=== PATIENT | female | born 1950 ===

== ENCOUNTER → 2017-04-26 | Outpatient (CLI) | payer MEDICARE ==
--- NOTE | 2017-04-26 14:38 | MM ---
Reason for exam: screening (asymptomatic). Last mammogram was performed 1 year ago. History: Patient is postmenopausal. Family history of breast cancer in sister at age 61 and breast cancer in paternal grandmother. Took hormonal contraceptives for 2 years. Took estrogen for 5 years. Took progesterone for 5 years. Physical Findings: A clinical breast exam by your physician is recommended on an annual basis and results should be correlated with mammographic findings. MG 3D Screening Mammo W/Cad Bilateral CC and MLO view(s) were taken. Prior study comparison: April 19, 2016, bilateral MG 3d screening mammo w/cad. April 10, 2015, bilateral MG screening mammo w CAD. There are scattered fibroglandular densities. There is no discrete abnormality. No significant changes when compared with prior studies. ASSESSMENT: Negative, BI-RAD 1 RECOMMENDATION: Routine screening mammogram of both breasts in 1 year.
== END | disposition home or self-care (01) ==
LOC: RADMAMWWP 09:51
PROVIDERS: ATTEND Obstetrics & Gynecology
DX: Z12.31 Encounter for screening mammogram for malignant neoplasm of breast (principal)
CPT/HCPCS: 77063; G0202

== ENCOUNTER → 2018-05-23 | Outpatient (CLI) | payer MEDICARE ==
--- NOTE | 2018-05-25 09:16 | MM ---
Reason for exam: screening (asymptomatic). Last mammogram was performed 1 year and 1 month ago. History: Patient is postmenopausal. Family history of breast cancer in sister at age 61 and breast cancer in paternal grandmother. Took hormonal contraceptives for 2 years. Took estrogen for 5 years. Took progesterone for 5 years. Physical Findings: A clinical breast exam by your physician is recommended on an annual basis and results should be correlated with mammographic findings. MG 3D Screening Mammo W/Cad Bilateral CC and MLO view(s) were taken. Prior study comparison: April 26, 2017, bilateral MG 3d screening mammo w/cad. April 19, 2016, bilateral MG 3d screening mammo w/cad. There are scattered fibroglandular densities. No significant changes when compared with prior studies. ASSESSMENT: Benign, BI-RAD 2 RECOMMENDATION: Routine screening mammogram of both breasts in 1 year.
--- NOTE | 2018-05-28 14:35 | BD ---
EXAMINATION TYPE: Axial Bone Density DATE OF EXAM: 05/23/2018 COMPARISON: NONE CLINICAL HISTORY: Height: 65 Weight: 210.6 FRAX RISK QUESTIONS: Alcohol (3 or more units per day): no Family History (Parent hip fracture): no Glucocorticoids (More than 3mos): no (Ex: prednisone, prednisolone, methylprednisolone, dexamethasone, and hydrocortisone). History of Fracture in Adulthood: rt arm/shoulder Secondary Osteoporosis: 1. Type 1 Diabetes: no 2. Hyperthyroidism: no 3. Menopause before 45: no 4. Malnutrition: no 5. Chronic liver disease: no Rheumatoid Arthritis: no Current Tobacco Use: no RISK FACTORS HISTORY OF: Family History of Osteoporosis: yes Active: yes Diet low in dairy products/other sources of calcium: yes Postmenopausal woman: around 48 Lost more than 2 inches in height since high school: no MEDICATIONS: losartan, Additional History: EXAM MEASUREMENTS: Bone mineral densitometry was performed using the [employer] System. Bone mineral density as measured about the Lumbar spine is: ----- L1-L4(G/cm2): 1.227 T Score Values are as follows: ----- L2: -0.4 ----- L3: 0.0 ----- L4: 1.4 ----- L1-L4: 0.4 Bone mineral density has: increased 2.1 % since study of: 03.20.2014 Bone mineral density about the R hip (g/cm2): 0.906 Bone mineral density about the L hip (g/cm2): 0.895 T Score values are as follows: -----R Neck: -0.9 -----L Neck: -1.0 -----R Total: 0.0 -----L Total: 0.1 Bone mineral density has: decreased-4.4 % since study of: 03.20.2014 IMPRESSION: No evidence for osteoporosis or osteopenia. NOTE: T-SCORE=SD OF THE YOUNG ADULT MEAN.
== END | disposition home or self-care (01) ==
LOC: RADMAMWWP 08:26
PROVIDERS: ATTEND Obstetrics & Gynecology
DX: Z12.31 Encounter for screening mammogram for malignant neoplasm of breast (principal); Z13.820 Encounter for screening for osteoporosis; N83.209 Unspecified ovarian cyst, unspecified side
CPT/HCPCS: 36415; 77063; 77067; 77080; 86304

== ENCOUNTER → 2019-02-05 | Outpatient (CLI) | payer MEDICARE ==
[2019-02-05 20:22] LABS: Cat Epith & Dander IgE 0.32 kU/L; Cockroach IgE 0.24 kU/L; Dermato. farinae IgE 0.14 kU/L; Dog Dander IgE <0.10 kU/L
[2019-02-05 20:25] LABS: Alternaria alternata IgE <0.10 kU/L; Birch IgE <0.10 kU/L; Codfish IgE <0.10 kU/L; Egg White IgE <0.10 kU/L; Elm IgE <0.10 kU/L; Maple (Box Elder) IgE <0.10 kU/L; Oak IgE <0.10 kU/L; Ragweed,Common IgE <0.10 kU/L; Red Top (Bentgrass) IgE 0.52 kU/L
[2019-02-05 20:26] LABS: Peanut IgE <0.10 kU/L; Soybean IgE <0.10 kU/L
[2019-02-05 20:27] LABS: Clam IgE <0.10 kU/L; Scallop IgE <0.10 kU/L; Shrimp IgE <0.10 kU/L; Walnut IgE (Food) <0.10 kU/L
== END | disposition home or self-care (01) ==
LOC: LABWHC1 14:14
PROVIDERS: ATTEND Internal Medicine Critical Care Medicine
DX: R05 Cough (principal)
CPT/HCPCS: 36415; 82785; 86003

== ENCOUNTER → 2019-02-19 | Outpatient (CLI) | payer MEDICARE ==
--- NOTE | 2019-02-19 11:34 | CT ---
EXAMINATION TYPE: CT sinus wo con DATE OF EXAM: 02/19/2019 COMPARISON: None HISTORY: Cough x [address] DLP: 635 mGycm. Automated Exposure Control for Dose Reduction was Utilized. TECHNIQUE: CT scan of the sinuses is performed without contrast, axial images are obtained, coronal r eformatted images are also reviewed. FINDINGS: The paranasal sinuses including the frontal, ethmoid, sphenoid, and maxillary sinuses bila terally are well-aerated without abnormal opacification. There is very mild mucosal thickening involv ing the inferior maxillary sinuses bilaterally. The ostiomeatal complex is patent bilaterally on the coronal images. Visualized portion of mastoid air cells show no abnormal opacification. The globes are intact bilate rally. IMPRESSION: 1. Mild chronic appearing maxillary sinusitis bilaterally..
== END | disposition home or self-care (01) ==
LOC: RADCTMAIN 11:09
PROVIDERS: ATTEND Internal Medicine Critical Care Medicine
DX: J32.0 Chronic maxillary sinusitis (principal)
CPT/HCPCS: 70486

== ENCOUNTER → 2019-06-18 | Outpatient (CLI) | payer MEDICARE ==
--- NOTE | 2019-06-19 08:11 | MM ---
Reason for exam: screening (asymptomatic). Last mammogram was performed 1 year and 1 month ago. History: Patient is postmenopausal. Family history of breast cancer in sister at age 61 and breast cancer in paternal grandmother. Took hormonal contraceptives for 2 years. Took estrogen for 5 years. Took progesterone for 5 years. Physical Findings: A clinical breast exam by your physician is recommended on an annual basis and results should be correlated with mammographic findings. MG 3D Screening Mammo W/Cad Bilateral CC and MLO view(s) were taken. Prior study comparison: May 23, 2018, bilateral MG 3d screening mammo w/cad. April 26, 2017, bilateral MG 3d screening mammo w/cad. There are scattered fibroglandular densities. There is chronic nodularity in the left axilla. There is no discrete abnormality. ASSESSMENT: Negative, BI-RAD 1 RECOMMENDATION: Routine screening mammogram of both breasts in 1 year.
== END | disposition home or self-care (01) ==
LOC: RADMAMWWP 10:59
PROVIDERS: ATTEND Obstetrics & Gynecology
DX: Z12.31 Encounter for screening mammogram for malignant neoplasm of breast (principal)
CPT/HCPCS: 77063; 77067

== ENCOUNTER 2019-11-09 12:28 | Inpatient (IN) | payer MEDICARE ==
[2019-11-09] MEDS ORDERED: SODIUM CHLORIDE 0.9% 500 ML 500 ML IV ONE (12:48)
[2019-11-09 13:02] LABS: Basophils # (A) 0.1 k/uL (0-0.2); Basophils % (A) 0 %; Eosinophils # (A) 0.2 k/uL (0-0.7); Eosinophils % (A) 2 %; HCT 45.6 % (34.0-46.0); HGB 14.8 gm/dL (11.4-16.0); Lymphocytes # (A) 1.7 k/uL (1.0-4.8); Lymphocytes % (A) 11 %; MCH 26.8 pg (25.0-35.0); MCHC 32.5 g/dL (31.0-37.0); MCV 82.5 fL (80.0-100.0); Mean Platelet Volume 9.3; Monocytes # (A) 0.6 k/uL (0-1.0); Monocytes % (A) 4 %; Neutrophils # (A) 12.5 k/uL (1.3-7.7); Neutrophils % (A) 82 %; Platelet Count 216 k/uL (150-450); RBC 5.53 m/uL (3.80-5.40); RDW 12.8 % (11.5-15.5); WBC 15.3 k/uL (3.8-10.6)
[2019-11-09 13:15] LABS: Albumin 4.5 g/dL (3.5-5.0); Calcium 10.2 mg/dL (8.4-10.2); Magnesium 2.3 mg/dL (1.6-2.3); Potassium 3.8 mmol/L (3.5-5.1); Total Bilirubin 0.9 mg/dL (0.2-1.3); Total Protein 7.7 g/dL (6.3-8.2)
[2019-11-09 13:21] LABS: INR 0.9 (<1.2); Partial Thromboplastin Time 23.9 sec (22.0-30.0); Prothrombin Time 9.7 sec (9.0-12.0)
--- NOTE | 2019-11-09 13:36 | ED ---
General Adult HPI - General Chief complaint: Shortness of Breath Stated complaint: ELEONORA Time Seen by Provider: 11/09/19 12:40 Source: family, EMS Mode of arrival: EMS Limitations: no limitations - History of Present Illness Initial comments: The patient is a 69-year-old female with past history of asthma and hypertension presents emergency room with reported shortness of breath and tachycardia. The patient reports that she's had progressive shortness of breath for several months. She saw Dr. Hanna last year in regards to this. She also saw her [facility] doctor and had a stress test done at the end of September. States that everything had been normal. She will occasionally get these episodes where she feels as if her heart is racing. States that as of the week and half ago she had a dental procedure done. After that she has continued to have shortness of breath and palpitations. Today she states it felt worse than normal therefore she called EMS for assistance. She denies a previous cardiac history. No coronary artery disease. Denies any chest pain. No ripping or tearing sensation to her back. Denies any unilateral numbness or weakness. Denies abdominal pain or changes in bowel habits. Denies any cough, fevers or chills or hemoptysis. No lower extremity edema. No calf pain or swelling. Denies history of DVT or PE. No active cancer. Does not take any hormones. No prolonged immobility or recent surgery other than the dental extraction. There are no alleviating, precipitating or modifying factors - Related Data Home Medications Medication Instructions Recorded Confirmed Acetaminophen-Codeine 300-30mg 1 tab PO Q4H PRN 11/09/19 11/09/19 [Tylenol w/codeine #3] Budesonide/Formoterol Fumarate 2 puff INHALATION RT-BID 11/09/19 11/09/19 [Symbicort 160-4.5 Mcg Inhaler] Candesartan/Hydrochlorothiazid 1 tab PO QAM 11/09/19 11/09/19 [Candesartan/Hydrochlorothiazid 16-12.5 mg] Zicam Allergy Tabs 1 tab PO DAILY PRN 11/09/19 11/09/19 Previous Rx's Medication Instructions Recorded Nitrofurantoin Monohyd/M-Cryst 100 mg PO Q12HR #6 cap 11/12/19 [Macrobid] Rivaroxaban [Xarelto Starter Pack] 0 mg PO DIRECTED 30 Days #1 pack 11/12/19 Allergies Allergy/AdvReac Type Severity Reaction Status Date / Time Penicillins Allergy Rash/Hives Verified 11/09/19 16:36 Sulfa (Sulfonamide Allergy Unknown Verified 11/09/19 16:36 Antibiotics) Review of Systems ROS Statement: Those systems with pertinent positive or pertinent negative responses have been documented in the HPI. ROS Other: All systems not noted in ROS Statement are negative. Past Medical History Past Medical History: Hypertension History of Any Multi-Drug Resistant Organisms: None Reported Past Surgical History: No Surgical Hx Reported Past Psychological History: No Psychological Hx Reported Smoking Status: Never smoker Past Alcohol Use History: Occasional Past Drug Use History: None Reported - Past Family History Father Family Medical History: Chest Pain / Angina, Coronary Artery Disease (CAD) General Exam Limitations: no limitations General appearance: alert, in no apparent distress Head exam: Present: atraumatic, normocephalic, normal inspection Eye exam: Present: normal appearance, PERRL, EOMI. Absent: scleral icterus, conjunctival injection, periorbital swelling ENT exam: Present: normal exam, mucous membranes moist Neck exam: Present: normal inspection. Absent: tenderness, meningismus, lymphadenopathy Respiratory exam: Present: normal lung sounds bilaterally. Absent: respiratory distress, wheezes, rales, rhonchi, stridor Cardiovascular Exam: Present: normal rhythm, tachycardia, normal heart sounds. Absent: systolic murmur, diastolic murmur, rubs, gallop, clicks GI/Abdominal exam: Present: soft, normal bowel sounds. Absent: distended, tenderness, guarding, rebound, rigid Extremities exam: Present: normal inspection, full ROM, normal capillary refill. Absent: tenderness, pedal edema, joint swelling, calf tenderness Back exam: Present: normal inspection Neurological exam: Present: alert, oriented X3, CN II-XII intact Psychiatric exam: Present: normal affect, normal mood Skin exam: Present: warm, dry, intact, normal color. Absent: rash Course Vital Signs 11/09/19 11/09/19 11/09/19 12:41 13:00 13:30 Temperature 97.9 F Pulse Rate 135 H 122 H 118 H Respiratory 22 20 20 Rate Blood Pressure 139/102 139/102 132/83 O2 Sat by Pulse 95 97 97 Oximetry 02/05/2111/09/19 11/09/19 14:00 14:30 15:00 Temperature Pulse Rate 117 H 120 H Respiratory 20 20 Rate Blood Pressure 122/84 141/94 141/94 O2 Sat by Pulse 97 96 Oximetry 11/09/19 11/09/19 15:30 16:00 Temperature Pulse Rate 121 H 116 H Respiratory 18 18 Rate Blood Pressure 131/88 150/86 O2 Sat by Pulse 97 98 Oximetry EKG Findings - EKG Comments: EKG Findings:: EKG demonstrates what appears to be a sinus tach with a ventricular rate of 133. QRS 90. QTC of 592. Context is her narrow. There do appear to be some P waves versus flutter waves. No acute ST segment elevations. Q wave in lead 3. Medical Decision Making - Medical Decision Making Upon arrival the patient was placed into room 5. A thorough history and physical exam was performed. The patient does have an EKG performed which ap pears to be a sinus tach. I did conduct laboratory studies. WBC 15.3. D-dimer elevated at 7. Troponin 0.066. Urinalysis shows small blood, large leukocyte esterase, 26 red blood cells, greater than 182 white blood cells, many bacteria. Blood cultures obtained and the patient was given a dose of Rocephin. His elevated d-dimer at over for a CT PE study. Chest x-ray originally performed demonstrated no active cardio pulmonary disease. CT of the patient's chest demonstrates multiple bilateral pulmonary emboli in the lower lobes. Also embolism in the right upper lobe. I discussed the results of the patient. She does not have any contra indications to to heparinization therefore did initiate the patient on heparin. I admitted the patient's hospital. Discussed the case with Dr. Monroe who accepted admission. I'll place Dr. Salgado on consult. Patient remained in stable condition and was transferred to the floor - Lab Data Result diagrams: 11/12/19 06:13 11/10/19 06:04 Lab Results 11/09/19 11/09/19 11/09/19 Range/Units 12:55 12:55 12:55 WBC 15.3 H (3.8-10.6) k/uL RBC 5.53 H (3.80-5.40) m/uL Hgb 14.8 (11.4-16.0) gm/dL Hct 45.6 (34.0-46.0) % MCV 82.5 (80.0-100.0) fL MCH 26.8 (25.0-35.0) pg MCHC 32.5 (31.0-37.0) g/dL RDW 12.8 (11.5-15.5) % Plt Count 216 (150-450) k/uL Neutrophils % 82 % Lymphocytes % 11 % Monocytes % 4 % Eosinophils % 2 % Basophils % 0 % Neutrophils # 12.5 H (1.3-7.7) k/uL Lymphocytes # 1.7 (1.0-4.8) k/uL Monocytes # 0.6 (0-1.0) k/uL Eosinophils # 0.2 (0-0.7) k/uL Basophils # 0.1 (0-0.2) k/uL PT 9.7 (9.0-12.0) sec INR 0.9 (<1.2) APTT 23.9 (22.0-30.0) sec D-Dimer 7.09 H (<0.60) mg/L FEU Sodium 138 (137-145) mmol/L Potassium 3.8 (3.5-5.1) mmol/L Chloride 104 (98-107) mmol/L Carbon Dioxide 21 L (22-30) mmol/L Anion Gap 13 mmol/L BUN 17 (7-17) mg/dL Creatinine 1.13 H (0.52-1.04) mg/dL Est GFR (CKD-EPI)AfAm 57 (>60 ml/min/1.73 sqM) Est GFR (CKD-EPI)NonAf 49 (>60 ml/min/1.73 sqM) Glucose 123 H (74-99) mg/dL Calcium 10.2 (8.4-10.2) mg/dL Magnesium 2.3 (1.6-2.3) mg/dL Total Bilirubin 0.9 (0.2-1.3) mg/dL AST 35 (14-36) U/L ALT 26 (4-34) U/L Alkaline Phosphatase 92 (38-126) U/L Troponin I (0.000-0.034) ng/mL Total Protein 7.7 (6.3-8.2) g/dL Albumin 4.5 (3.5-5.0) g/dL TSH 2.050 (0.465-4.680) mIU/L Urine Color Urine Appearance (Clear) Urine pH (5.0-8.0) Ur Specific [place] (1.001-1.035) Urine Protein (Negative) Urine Glucose (UA) (Negative) Urine Ketones (Negative) Urine Blood (Negative) Urine Nitrite (Negative) Urine Bilirubin (Negative) Urine Urobilinogen (<2.0) mg/dL Ur Leukocyte Esterase (Negative) Urine RBC (0-5) /hpf Urine WBC (0-5) /hpf Urine WBC Clumps (None) /hpf Ur Squamous Epith Cells (0-4) /hpf Urine Bacteria (None) /hpf Urine Mucus (None) /hpf 11/09/19 11/09/19 Range/Units 12:55 13:16 WBC (3.8-10.6) k/uL RBC (3.80-5.40) m/uL Hgb (11.4-16.0) gm/dL Hct (34.0-46.0) % MCV (80.0-100.0) fL MCH (25.0-35.0) pg MCHC (31.0-37.0) g/dL RDW (11.5-15.5) % Plt Count (150-450) k/uL Neutrophils % % Lymphocytes % % Monocytes % % Eosinophils % % Basophils % % Neutrophils # (1.3-7.7) k/uL Lymphocytes # (1.0-4.8) k/uL Monocytes # (0-1.0) k/uL Eosinophils # (0-0.7) k/uL Basophils # (0-0.2) k/uL PT (9.0-12.0) sec INR (<1.2) APTT (22.0-30.0) sec D-Dimer (<0.60) mg/L FEU Sodium (137-145) mmol/L Potassium (3.5-5.1) mmol/L Chloride (98-107) mmol/L Carbon Dioxide (22-30) mmol/L Anion Gap mmol/L BUN (7-17) mg/dL Creatinine (0.52-1.04) mg/dL Est GFR (CKD-EPI)AfAm (>60 ml/min/1.73 sqM) Est GFR (CKD-EPI)NonAf (>60 ml/min/1.73 sqM) Glucose (74-99) mg/dL Calcium (8.4-10.2) mg/dL Magnesium (1.6-2.3) mg/dL Total Bilirubin (0.2-1.3) mg/dL AST (14-36) U/L ALT (4-34) U/L Alkaline Phosphatase (38-126) U/L Troponin I 0.066 H* (0.000-0.034) ng/mL Total Protein (6.3-8.2) g/dL Albumin (3.5-5.0) g/dL TSH (0.465-4.680) mIU/L Urine Color Yellow Urine Appearance Cloudy H (Clear) Urine pH 6.5 (5.0-8.0) Ur Specific [place] 1.010 (1.001-1.035) Urine Protein 1+ H (Negative) Urine Glucose (UA) Negative (Negative) Urine Ketones Negative (Negative) Urine Blood Small H (Negative) Urine Nitrite Negative (Negative) Urine Bilirubin Negative (Negative) Urine Urobilinogen <2.0 (<2.0) mg/dL Ur Leukocyte Esterase Large H (Negative) Urine RBC 26 H (0-5) /hpf Urine WBC >182 H (0-5) /hpf Urine WBC Clumps Many H (None) /hpf Ur Squamous Epith Cells 1 (0-4) /hpf Urine Bacteria Few H (None) /hpf Urine Mucus Rare H (None) /hpf Critical Care Time Critical Care Time: 35mins. pt initiated on heparin gtt Disposition Clinical Impression: Tachycardia, Shortness of breath, Pulmonary embolism, NSTEMI (non-ST elevation myocardial infarction) Disposition: ADMITTED IP TO THIS HOSP Condition: Stable Is patient prescribed a controlled substance at d/c from ED?: No Decision to Admit Reason: Admit from EC Decision Date: 11/09/19 Decision Time: 16:00
[2019-11-09 13:38] LABS: Appearance,Urine Cloudy (Clear); Bacteria,Urine Few /hpf; Bilirubin,Urine Negative (Negative); Blood,Urine Small (Negative); Color,Urine Yellow; Glucose,Urine (UA) Negative (Negative); Ketones,Urine Negative (Negative); Leukocyte Esterase,Urine Large (Negative); Mucus,Urine Rare /hpf; Nitrite,Urine Negative (Negative); PH, Urine 6.5 (5.0-8.0); Protein,Urine 1+ (Negative); RBC,Urine 26 /hpf (0-5); Squamous Epithelial Cell,Urine 1 /hpf (0-4); Urobilinogen,Urine <2.0 mg/dL (<2.0); WBC,Urine >182 /hpf (0-5)
--- NOTE | 2019-11-09 13:39 | XR ---
EXAMINATION TYPE: XR chest 2V DATE OF EXAM: 11/09/2019 HISTORY: dysrhythmia. REFERENCE: NONE. FINDINGS: The lungs are clear. Pleural spaces are clear. Heart size is within normal limits. There is some unfolding of the thoracic aorta. IMPRESSION: NO ACTIVE INTRATHORACIC DISEASE.
[2019-11-09 13:40] LABS: D-Dimer 7.09 mg/L FEU (<0.60)
[2019-11-09] MEDS ORDERED: cefTRIAXone IN SWFI 1,000 MG/10 ML SYRINGE IVP STA (13:59)
--- NOTE | 2019-11-09 14:53 | CT ---
EXAMINATION TYPE: CT chest angio for PE DATE OF EXAM: 11/09/2019 COMPARISON: HISTORY: Shortness of breath. CT DLP: 460.3 mGycm Automated exposure control for dose reduction was used. CONTRAST: Performed with IV Contrast, patient injected with 80 mL of Isovue 370. CT scan of the chest pulmonary embolism. There are 3-D post processed images. FINDINGS: The mediastinum is normal. There is no mediastinal adenopathy. Thoracic aorta is intact. There is no aneurysm or dissection. Heart size is normal. There is no pericardial effusion. There are multiple cy sts in the liver in the left and right lobe. These measure up to 4 cm. The bile ducts are not dilated . Spleen is intact. There is no pleural effusion. The lungs are clear of consolidation. There is no evidence of a pulmona ry mass. There are numerous filling defects in the lower lobe pulmonary arteries bilaterally. There is also em bolism in the right upper lobe pulmonary artery. The thoracic spine is intact. Heart size is fairly normal. There is no enlargement of the right ventricle. There is mild subsegment al atelectasis at the lung bases. IMPRESSION: Multiple bilateral pulmonary emboli. Exam was discussed with Sonali Campuzano at 2:00 PM.
[2019-11-09] MEDS ORDERED: HEPARIN SODIUM,PORCINE 10,000 UNIT/ML 1 ML VIAL IV ONE (15:15)
[2019-11-09] MEDS ORDERED: HEPARIN SODIUM,PORCINE 5,000 UNIT/ML 1 ML VIAL IV PRN (15:15)
[2019-11-09] MEDS: HEPARIN SOD,PORK IN 0.45% NACL 25,000 UNIT in 0.45% NACL 1 250ML.BAG IV SCH (15:48)
[2019-11-09] MEDS ORDERED: NALOXONE 0.4 MG/ML 1 ML VIAL IV PRN (16:00)
[2019-11-09] MEDS ORDERED: ASPIRIN-ACET-CAFF 250-250-65MG 1 EACH TAB PO PRN (18:05)
[2019-11-09] MEDS ORDERED: Acetaminophen-Codeine 300-30mg TAB PO PRN (18:05)
--- NOTE | 2019-11-09 18:42 | P.HPIM ---
History of Present Illness H&P Date: 11/09/19 Chief Complaint: Difficulty in breathing off and on for one week prior to pr esentation. This 69-year-old lady with us medical history significant for hypertension, asthma and possible asthma which was recently diagnosed by Dr. Hanna as started on inhalers, who presented to the emergency department with her daughter with the above complaints. Patient stated that she had tooth abscess on for which she's been sick off-and-on for couple weeks and receive antibiotics after tooth extraction. Patient started developing dyspnea on exertion that lasted for short period of time and resolving back to her baseline so she did not seek medical advice. Patient reported that she continues to have these type of symptoms off and on for past 7-8 days until on the day of presentation which is today her shortness of breath did not improved and patient's daughter brought the patient to the emergency room for evaluation. Patient stated that this morning she also had some heaviness in the chest that she had not had in the past. Patient denies palpitation, diaphoresis, dizziness, lightheadedness, nausea, vomiting, diarrhea and denies rest of the review system. Patient did complain of having chronic headaches for which she takes Excedrin with help. Review of Systems All systems: negative Past Medical History Past Medical History: Asthma, Hypertension History of Any Multi-Drug Resistant Organisms: None Reported Past Surgical History: No Surgical Hx Reported Past Anesthesia/Blood Transfusion Reactions: No Reported Reaction Past Psychological History: No Psychological Hx Reported Smoking Status: Former smoker Past Alcohol Use History: Occasional Past Drug Use History: None Reported - Past Family History Father Family Medical History: Chest Pain / Angina, Coronary Artery Disease (CAD) Medications and Allergies Home Medications Medication Instructions Recorded Confirmed Type Acetaminophen-Codeine 300-30mg 1 tab PO Q4H PRN 11/09/19 11/09/19 History [Tylenol w/codeine #3] [id number]-Safm 036-340-15Mb 1 tab PO BID PRN 11/09/19 11/09/19 History [Excedrin] Budesonide/Formoterol Fumarate 2 puff INHALATION RT-BID 11/09/19 11/09/19 History [Symbicort 160-4.5 Mcg Inhaler] Candesartan/Hydrochlorothiazid 1 tab PO QAM 11/09/19 11/09/19 History [Candesartan/Hydrochlorothiazid 16-12.5 mg] Zicam Allergy Tabs 1 tab PO DAILY PRN 11/09/19 11/09/19 History Allergies Allergy/AdvReac Type Severity Reaction Status Date / Time Penicillins Allergy Rash/Hives Verified 11/09/19 16:36 Sulfa (Sulfonamide Allergy Unknown Verified 11/09/19 16:36 Antibiotics) Physical Exam Vitals: Vital Signs Temp Pulse Pulse Resp BP BP Pulse Ox 11/09/19 16:55 98.2 F 124 H 19 133/86 95 11/09/19 16:00 116 H 18 150/86 98 11/09/19 15:30 121 H 18 131/88 97 11/09/19 15:00 120 H 20 141/94 96 11/09/19 14:30 141/94 11/09/19 14:00 117 H 20 122/84 97 11/09/19 13:30 118 H 20 132/83 97 11/09/19 13:00 122 H 20 139/102 97 11/09/19 12:41 97.9 F 135 H 22 139/102 95 Intake and Output 11/09/19 11/09/19 11/09/19 06:59 14:59 22:59 Other: Weight 96.162 kg 96.162 kg - Constitutional General appearance: cooperative, mild distress - EENT Eyes: EOMI, normal appearance ENT: hearing grossly normal, NA/AT - Neck Neck: no lymphadenopathy, normal ROM, no stridor - Respiratory Respiratory: bilateral: CTA, wheezing (Few scattered bilaterally), negative: diminished, dullness, rales, rhonchi - Cardiovascular Rhythm: irregularly irregular Heart sounds: abnormal: S1 (Variable), S2 (Variable) Abnormal Heart Sounds: no systolic murmur, no diastolic murmur, no S3 Gallop, no S4 Gallop - Gastrointestinal Mild supra-pubic soreness without rebound tenderness, no CVA tenderness. General gastrointestinal: no distended, normal bowel sounds, no rigid, soft, no tenderness - Neurologic Neurologic: CNII-XII intact (No focal neuro deficits noted.) - Psychiatric Psychiatric: A&O x's 3, appropriate affect, intact judgment & insight Results CBC & Chem 7: 11/09/19 12:55 11/09/19 12:55 Labs: Abnormal Lab Results - Last 24 Hours (Table) 11/09/19 11/09/19 11/09/19 Range/Units 12:55 12:55 12:55 WBC 15.3 H (3.8-10.6) k/uL RBC 5.53 H (3.80-5.40) m/uL Neutrophils # 12.5 H (1.3-7.7) k/uL D-Dimer 7.09 H (<0.60) mg/L FEU Carbon Dioxide 21 L (22-30) mmol/L Creatinine 1.13 H (0.52-1.04) mg/dL Glucose 123 H (74-99) mg/dL Troponin I (0.000-0.034) ng/mL Urine Appearance (Clear) Urine Protein (Negative) Urine Blood (Negative) Ur Leukocyte Esterase (Negative) Urine RBC (0-5) /hpf Urine WBC (0-5) /hpf Urine WBC Clumps (None) /hpf Urine Bacteria (None) /hpf Urine Mucus (None) /hpf 11/09/19 11/09/19 Range/Units 12:55 13:16 WBC (3.8-10.6) k/uL RBC (3.80-5.40) m/uL Neutrophils # (1.3-7.7) k/uL D-Dimer (<0.60) mg/L FEU Carbon Dioxide (22-30) mmol/L Creatinine (0.52-1.04) mg/dL Glucose (74-99) mg/dL Troponin I 0.066 H* (0.000-0.034) ng/mL Urine Appearance Cloudy H (Clear) Urine Protein 1+ H (Negative) Urine Blood Small H (Negative) Ur Leukocyte Esterase Large H (Negative) Urine RBC 26 H (0-5) /hpf Urine WBC >182 H (0-5) /hpf Urine WBC Clumps Many H (None) /hpf Urine Bacteria Few H (None) /hpf Urine Mucus Rare H (None) /hpf Chest x-ray: report reviewed CT scan - chest: report reviewed Thrombosis Risk Factor Assmnt - DVT/VTE Prophylaxis DVT/VTE Prophylaxis: Contraindicated - See note (Pt. is on full dose anticoagulation with I/V Heparin for PEs.) - Choose All That Apply Any of the Below Risk Factors Present?: No Each Risk Factor Represents 2 Points: Age 61-74 years Each Risk Factor Represents 3 Points: History of DVT/PE Thrombosis Risk Factor Assessment Total Risk Factor Score: 5 Thrombosis Risk Factor Assessment Level: High Risk Assessment and Plan Plan: Bilateral Multiple Pulmonary Embolism - Admitted to cardiac unit, IV heparinization with PTT protocol, we will discuss with patient and patient's daughter regarding oral anticoagulation choices. Patient is a good candidate for ELIQUIS but we will defer this decision depending upon the patient's own choices. I will order bilateral lower extremity venous Doppler to look for deep venous thrombosis leading to patient's multiple pulmonary embolism shower. Patient will also be placed on his atenolol oxygen to optimize oxygenation. NSTEMI possible type-II - Patient did had vague chest heaviness earlier today but there is no prior history of coronary artery disease or myocardial infarction. Current and a STEMI could be type-II from bilateral multiple pulmonary embolisms or it could be an independent event. I will consult cardiology and await their recommendation will continue IV heparin and I will add aspirin to the regime. Patient is already on losartan we will continue that. Atrial Fib w/RVR - Not sure whether this is new onset atrial fibrillation from multiple pulmonary embolisms or is a chronic atrial fibrillation, no prior EKG to compare. Patient was not aware of irregular heart rate before. Cardiology is already on case and we'll await further recommendation. At this point in time patient blood pressure is stable and heart rate is not out of control as currently she is running between 110-120 bpm and we will monitor her on telemetry unit. Patient's heart rate gets out of control than beta bouchra would be the choice of medication to control heart rate in face of an NSTEMI. UTI - Uncomplicated - Patient was given first dose of ceftriaxone in the emergency department I will continue that on a daily basis for now, urine and blood cultures were ordered from the ED and we will follow the reports. There is no clinical evidence of acute pyelonephritis at this point. MARIA on CKD - Patient has stage III kidney disease most likely acute on chronic kidney injury from all of the above. Patient will be continued on IV hydration and I will monitor patient renal function and electrolytes in the morning. HTN - Blood pressure is well controlled I will continue home medications. Asthma/COPD newly diagnosed by Dr. Hanna - Patient was recently started on Symbicort we will continue for now and Dr. Hanna consultfrom the emergency department per patient's request we will await their recommendations. CODE STATUSfull code DVT prophylaxispatient already on full dose IV heparin for multiple pulmonary embolisms. Estimated length of staymore than 2 days. Discharge dispositionmost likely home and if needed with home care. Time with Patient: Greater than 30 (Total time spent was 45 minutes.)
--- NOTE | 2019-11-09 19:01 | US ---
EXAMINATION TYPE: US venous doppler duplex LE DATE OF EXAM: 11/09/2019 6:10 PM COMPARISON: NONE CLINICAL HISTORY: Bilateral multiple Pulmonary Embolisms. PE's, pt states no complaints with bilatera l legs SIDE PERFORMED: Bilateral TECHNIQUE: The lower extremity deep venous system is examined utilizing real time linear array sonog ck with graded compression, doppler sonography and color-flow sonography. VESSELS IMAGED: External Iliac Vein (EIV) Common Femoral Vein Deep Femoral Vein Greater Saphenous Vein * Femoral Vein Popliteal Vein Small Saphenous Vein * Proximal Calf Veins (* superficial vessels) Right Leg: Negative for DVT Left Leg: Negative for DVT IMPRESSION: Negative exam. No evidence of deep vein thrombosis in both legs.
[2019-11-09] MEDS: ASPIRIN 81 MG PO SCH (19:35)
[2019-11-09] MEDS: SYMBICORT 160-4.5 MCG INHALER INHALATION SCH ×2 (20:40→21:00)
[2019-11-10] MEDS: HEPARIN SOD,PORK IN 0.45% NACL 25,000 UNIT in 0.45% NACL 1 250ML.BAG IV SCH ×2 (05:39→22:12)
[2019-11-10 06:50] LABS: Basophils # (A) 0.1 k/uL (0-0.2); Basophils % (A) 1 %; Eosinophils # (A) 0.2 k/uL (0-0.7); Eosinophils % (A) 1 %; HCT 42.8 % (34.0-46.0); HGB 13.6 gm/dL (11.4-16.0); Lymphocytes % (A) 22 %; MCHC 31.8 g/dL (31.0-37.0); MCV 81.8 fL (80.0-100.0); Mean Platelet Volume 9.5; Monocytes # (A) 0.7 k/uL (0-1.0); Monocytes % (A) 5 %; Neutrophils # (A) 9.6 k/uL (1.3-7.7); Neutrophils % (A) 70 %; Platelet Count 208 k/uL (150-450); RBC 5.23 m/uL (3.80-5.40); RDW 13.1 % (11.5-15.5); WBC 13.8 k/uL (3.8-10.6)
[2019-11-10 07:38] LABS: Calcium 9.4 mg/dL (8.4-10.2); Magnesium 2.3 mg/dL (1.6-2.3); Potassium 4.2 mmol/L (3.5-5.1)
[2019-11-10] MEDS: SYMBICORT 160-4.5 MCG INHALER INHALATION SCH ×2 (09:00→19:43)
[2019-11-10] MEDS: LOSARTAN 50 MG TAB PO SCH (09:17)
[2019-11-10] MEDS: ASPIRIN 81 MG PO SCH (09:17)
--- NOTE | 2019-11-10 11:47 | P.PN ---
Subjective Progress Note Date: 11/10/19 This 69-year-old lady with us medical history significant for hypertension, asthma and possible asthma which was recently diagnosed by Dr. Hanna as started on inhalers, who presented to the emergency department with her daughter with the above complaints. Patient stated that she had tooth abscess on for which she's been sick off-and-on for couple weeks and receive antibiotics after tooth extraction. Patient started developing dyspnea on exertion that lasted for short period of time and resolving back to her baseline so she did not seek medical advice. Patient reported that she continues to have these type of symptoms off and on for past 7-8 days until on the day of presentation which is today her shortness of breath did not improved and patient's daughter brought the patient to the emergency room for evaluation. Patient stated that this morning she also had some heaviness in the chest that she had not had in the past. Patient's bilateral lower extremity Dopplers was done which was negative for deep vein thrombosis. Patient denies palpitation, diaphoresis, dizziness, lightheadedness, nausea, vomiting, diarrhea and denies rest of the review system. Patient did complain of having chronic headaches for which she takes Excedrin with help. Objective - Vital Signs Vital signs: Vital Signs Temp 97.9 F 11/10/19 08:00 Pulse 101 H 11/10/19 08:00 Resp 19 11/10/19 08:00 BP 116/75 11/10/19 08:00 Pulse Ox 94 L 11/10/19 08:00 Intake & Output 11/09/19 11/10/19 11/10/19 18:59 06:59 18:59 Intake Total 445.88 36.3 Balance 445.88 36.3 Weight 96.162 kg 96.6 kg Intake: Intake, IV Titration 205.88 36.3 Amount Heparin Sod,Pork in 0.45% 205.88 36.3 NaCl 25,000 unit In 0.45 % NaCl 1 250ml.bag @ 18 UNITS/KG/HR 17.309 mls/hr IV .[id number] [facility] Rx#: [id number] Oral 240 Other: # Voids 2 - Constitutional General appearance: Present: cooperative, no acute distress - EENT Eyes: Present: EOMI, normal appearance ENT: Present: hearing grossly normal, NA/AT - Neck Neck: Present: normal ROM. Absent: lymphadenopathy, rigidity - Respiratory Respiratory: bilateral: CTA, negative: diminished, dullness, rales, rhonchi, wheezing - Cardiovascular Rhythm: regular Heart sounds: normal: S1, S2 Abnormal Heart Sounds: Absent: systolic murmur, diastolic murmur, S3 Gallop, S4 Gallop - Gastrointestinal General gastrointestinal: Present: normal bowel sounds, soft. Absent: distended, rigid, tenderness - Neurologic Neurologic: Present: CNII-XII intact. Absent: focal deficits - Psychiatric Psychiatric: Present: A&O x's 3, appropriate affect, intact judgment & insight - Allied health notes Allied health notes reviewed: nursing - Labs CBC & Chem 7: 11/10/19 06:04 11/10/19 06:04 Labs: Abnormal Lab Results - Last 24 Hours (Table) 11/09/19 11/09/19 11/09/19 Range/Units 12:55 12:55 12:55 WBC 15.3 H (3.8-10.6) k/uL RBC 5.53 H (3.80-5.40) m/uL Neutrophils # 12.5 H (1.3-7.7) k/uL APTT (22.0-30.0) sec D-Dimer 7.09 H (<0.60) mg/L FEU Carbon Dioxide 21 L (22-30) mmol/L Creatinine 1.13 H (0.52-1.04) mg/dL Glucose 123 H (74-99) mg/dL Troponin I (0.000-0.034) ng/mL Urine Appearance (Clear) Urine Protein (Negative) Urine Blood (Negative) Ur Leukocyte Esterase (Negative) Urine RBC (0-5) /hpf Urine WBC (0-5) /hpf Urine WBC Clumps (None) /hpf Urine Bacteria (None) /hpf Urine Mucus (None) /hpf 11/09/19 11/09/19 11/09/19 Range/Units 12:55 13:16 21:25 WBC (3.8-10.6) k/uL RBC (3.80-5.40) m/uL Neutrophils # (1.3-7.7) k/uL APTT >200.0 H* (22.0-30.0) sec D-Dimer (<0.60) mg/L FEU Carbon Dioxide (22-30) mmol/L Creatinine (0.52-1.04) mg/dL Glucose (74-99) mg/dL Troponin I 0.066 H* (0.000-0.034) ng/mL Urine Appearance Cloudy H (Clear) Urine Protein 1+ H (Negative) Urine Blood Small H (Negative) Ur Leukocyte Esterase Large H (Negative) Urine RBC 26 H (0-5) /hpf Urine WBC >182 H (0-5) /hpf Urine WBC Clumps Many H (None) /hpf Urine Bacteria Few H (None) /hpf Urine Mucus Rare H (None) /hpf 11/10/19 11/10/19 11/10/19 Range/Units 06:04 06:04 06:04 WBC 13.8 H (3.8-10.6) k/uL RBC (3.80-5.40) m/uL Neutrophils # 9.6 H (1.3-7.7) k/uL APTT 124.8 H* (22.0-30.0) sec D-Dimer (<0.60) mg/L FEU Carbon Dioxide (22-30) mmol/L Creatinine (0.52-1.04) mg/dL Glucose 102 H (74-99) mg/dL Troponin I (0.000-0.034) ng/mL Urine Appearance (Clear) Urine Protein (Negative) Urine Blood (Negative) Ur Leukocyte Esterase (Negative) Urine RBC (0-5) /hpf Urine WBC (0-5) /hpf Urine WBC Clumps (None) /hpf Urine Bacteria (None) /hpf Urine Mucus (None) /hpf - Imaging and Cardiology Venous US: report reviewed Assessment and Plan Plan: Bilateral Multiple Pulmonary Embolism - Admitted to cardiac unit, IV heparinization with PTT protocol, I discussed with patient and patient's daughter regarding oral anticoagulation choices, patient refused option of warfarin but she wanted to discuss other options with her pig machine operator helper and machine i cutter and then come up with the her choice of anticoagulation therapy by tomorrow. Patient was given education about anticoagulation and pros and cons related to it and all questions were answered. Patient is a good candidate for ELIQUIS but we will defer this decision depending upon the patient's own choices. Bilateral lower extremity venous Doppler NEGATIVE for deep venous thrombosis. Patient will also be placed on NCO2 to optimize oxygenation. NSTEMI possible type-II - Patient did had vague chest heaviness earlier today but there is no prior history of coronary artery disease or myocardial infarction. Current and a STEMI could be type-II from bilateral multiple pulmonary embolisms or it could be an independent event. Cardiology has been consulted and await their recommendations, will continue IV heparin and I will add aspirin to the regime. Patient is already on losartan we will continue that. Atrial Fib w/RVR - Not sure whether this is new onset atrial fibrillation from multiple pulmonary embolisms or is a chronic atrial fibrillation, no prior EKG to compare. Patient was not aware of irregular heart rate before her heart rate is now better controlled. Cardiology is already on case and we'll await further recommendation. If patient's heart rate gets out of control than beta bouchra would be the choice of medication to control heart rate in face of an NSTEMI. UTI - Uncomplicated - Patient was given first dose of ceftriaxone in the emergency department I will continue that on a daily basis for now, urine and blood cultures were ordered from the ED and we will follow the reports. There is no clinical evidence of acute pyelonephritis at this point. MARIA on CKD - Patient has stage III kidney disease most likely acute on chronic kidney injury from all of the above. Patient will be continued on IV hydration and I will monitor patient renal function and electrolytes in the morning. HTN - Blood pressure is well controlled I will continue home medications. Asthma/COPD newly diagnosed by Dr. Hanna - Patient was recently started on Symbicort we will continue for now and Dr. Hanna consultfrom the emergency department per patient's request we will await their recommendations. CODE STATUSfull code DVT prophylaxispatient already on full dose IV heparin for multiple pulmonary embolisms. Estimated length of staymore than 2 days. Discharge dispositionmost likely home and if needed with home care. Time with Patient: Less than 30
--- NOTE | 2019-11-10 12:12 | P.CNPUL ---
History of Present Illness Consult date: 11/10/19 Requesting physician: Sarbjit Juares Reason for consult: abnormal CXR/CT (Multiple bilateral pulmonary emboli) Chief complaint: Dyspnea on exertion History of present illness: This is a very pleasant 69-year-old female patient who follows with Dr. Parkinson as her primary care provider. She has history of hypertension. She had also been seen by Dr. Richardson in the past with some mild intermittent chronic bronchial asthma and is on Symbicort in the outpatient setting. She is a lifelong nonsmoker. She had been having issues with shortness of breath on exertion for 2 months now. In September she had a stress test that was reported as normal. She also had a tooth abscess 2 weeks ago with subsequent extraction. Otherwise she had been doing fairly well. The exertion no shortness of breath improved with rest yesterday however she was quite dyspneic with minimal exertion and tachycardic and presented the emergency room for the same. CT angiogram revealed multiple bilateral pulmonary emboli. No right ventricular heart strain or enlargement. Dopplers of the lower extremity were negative. The patient denies any sedentary lifestyle, no long car rides no plane rides no recent travel, no prior history of blood clots. No family history of blood clots, no cancer, no hemoptysis. She was initiated on a heparin drip. She is seen today in consultation on the selective care unit. She is currently awake and alert in no acute distress. Maintaining O2 saturation in the 90s on 2 L/m per nasal cannula. She's afebrile. Hemodynamically stable. White count 13.8. Hemoglobin 13.6. Sodium 137. Potassium 4.2. Creatinine 0.96. Review of Systems REVIEW OF SYSTEMS: CONSTITUTIONAL: Denies any recent significant weight loss or weight gain. EYES: Denies change in vision. EARS, NOSE, MOUTH, THROAT: Denies headaches, denies sore throat. CARDIOVASCULAR: Denies chest pain, positive for palpitations no syncopal episodes. RESPIRATORY: Positive for shortness of breath, no cough, congestion or hemoptysis. GASTROINTESTINAL: Denies change in appetite, denies abdominal pain GENITOURINARY: Denies hematuria, denies infections. MUSKULOSKELETAL: Denies pain, denies swelling. INTEGUMENTARY: Denies rash, denies eczema. NEUROLOGICAL: Denies recent memory loss, no recent seizure activity. PSYCHIATRIC: Denies anxiety, denies depression. HEMATOLOGIC/LYMPHATIC: Denies anemia, denies enlarged lymph nodes. Past Medical History Past Medical History: Hypertension History of Any Multi-Drug Resistant Organisms: None Reported Past Surgical History: No Surgical Hx Reported Past Anesthesia/Blood Transfusion Reactions: No Reported Reaction Past Psychological History: No Psychological Hx Reported Smoking Status: Never smoker Past Alcohol Use History: Occasional Past Drug Use History: None Reported - Past Family History Father Family Medical History: Chest Pain / Angina, Coronary Artery Disease (CAD) Medications and Allergies Home Medications Medication Instructions Recorded Confirmed Type Acetaminophen-Codeine 300-30mg 1 tab PO Q4H PRN 11/09/19 11/09/19 History [Tylenol w/codeine #3] Qyopxgl-Waht-Gdim 450-788-26Po 1 tab PO BID PRN 11/09/19 11/09/19 History [Excedrin] Budesonide/Formoterol Fumarate 2 puff INHALATION RT-BID 11/09/19 11/09/19 History [Symbicort 160-4.5 Mcg Inhaler] Candesartan/Hydrochlorothiazid 1 tab PO QAM 11/09/19 11/09/19 History [Candesartan/Hydrochlorothiazid 16-12.5 mg] Zicam Allergy Tabs 1 tab PO DAILY PRN 11/09/19 11/09/19 History Allergies Allergy/AdvReac Type Severity Reaction Status Date / Time Penicillins Allergy Rash/Hives Verified 11/09/19 16:36 Sulfa (Sulfonamide Allergy Unknown Verified 11/09/19 16:36 Antibiotics) Physical Exam Vitals: Vital Signs Temp Pulse Pulse Resp BP BP Pulse Ox 11/10/19 08:00 97.9 F 101 H 19 116/75 94 L 11/10/19 03:47 98 16 11/10/19 03:46 97.9 F 98 16 113/73 95 11/09/19 23:50 106 H 16 11/09/19 23:48 98.2 F 106 H 16 110/73 96 11/09/19 19:39 98.0 F 111 H 18 134/82 99 11/09/19 18:29 124 H 19 11/09/19 16:55 98.2 F 124 H 19 133/86 95 11/09/19 16:00 116 H 18 150/86 98 11/09/19 15:30 121 H 18 131/88 97 11/09/19 15:00 120 H 20 141/94 96 11/09/19 14:30 141/94 11/09/19 14:00 117 H 20 122/84 97 11/09/19 13:30 118 H 20 132/83 97 11/09/19 13:00 122 H 20 139/102 97 11/09/19 12:41 97.9 F 135 H 22 139/102 95 Intake and Output 11/09/19 11/10/19 11/10/19 22:59 06:59 14:59 Intake Total 355.97 89.91 36.3 Balance 355.97 89.91 36.3 Intake: Intake, IV Titration 115.97 89.91 36.3 Amount Heparin Sod,Pork in 0.45% 115.97 89.91 36.3 NaCl 25,000 unit In 0.45 % NaCl 1 250ml.bag @ 18 UNITS/KG/HR 17.309 mls/hr IV .[id number] [facility] Rx#: [id number] Oral 240 Other: # Voids 2 Weight 96.162 kg 96.6 kg GENERAL EXAM: Alert, active, pleasant 69-year-old female patient, on 2 L nasal cannula, comfortable in no apparent distress. HEAD: Normocephalic. EYES: Normal reaction of pupils, equal size. NOSE: Clear with pink turbinates. THROAT: No erythema or exudates. NECK: No masses, no JVD. CHEST: No chest wall deformity. LUNGS: Equal air entry with no crackles, wheeze, rhonchi or dullness. CVS: S1 and S2 normal with no audible murmur, regular rhythm. ABDOMEN: No hepatosplenomegaly, normal bowel sounds, no guarding or rigidity. SPINE: No scoliosis or deformity SKIN: No rashes CENTRAL NERVOUS SYSTEM: No focal deficits, tone is normal in all 4 extremities. EXTREMITIES: There is no peripheral edema. No clubbing, no cyanosis. Peripheral pulses are intact. Results - Laboratory Findings CBC and BMP: 11/10/19 06:04 11/10/19 06:04 PT/INR, D-dimer PT 9.7 sec (9.0-12.0) 11/09/19 12:55 INR 0.9 (<1.2) 02/08/20 12:55 D-Dimer 7.09 mg/L FEU (<0.60) H 11/09/19 12:55 Abnormal lab findings: Abnormal Labs 11/09/19 11/09/19 11/09/19 12:55 12:55 12:55 WBC 15.3 H RBC 5.53 H Neutrophils # 12.5 H APTT D-Dimer 7.09 H Carbon Dioxide 21 L Creatinine 1.13 H Glucose 123 H Troponin I Urine Appearance Urine Protein Urine Blood Ur Leukocyte Esterase Urine RBC Urine WBC Urine WBC Clumps Urine Bacteria Urine Mucus 11/09/19 11/09/19 11/09/19 12:55 13:16 21:25 WBC RBC Neutrophils # APTT >200.0 H* D-Dimer Carbon Dioxide Creatinine Glucose Troponin I 0.066 H* Urine Appearance Cloudy H Urine Protein 1+ H Urine Blood Small H Ur Leukocyte Esterase Large H Urine RBC 26 H Urine WBC >182 H Urine WBC Clumps Many H Urine Bacteria Few H Urine Mucus Rare H 11/10/19 11/10/19 11/10/19 06:04 06:04 06:04 WBC 13.8 H RBC Neutrophils # 9.6 H APTT 124.8 H* D-Dimer Carbon Dioxide Creatinine Glucose 102 H Troponin I Urine Appearance Urine Protein Urine Blood Ur Leukocyte Esterase Urine RBC Urine WBC Urine WBC Clumps Urine Bacteria Urine Mucus - Diagnostic Findings CT scan - chest: image reviewed Assessment and Plan Assessment: 1 Dyspnea on exertion secondary to multiple bilateral pulmonary emboli 2 Tachycardia, sinus versus A. fib RVR, recent stress test reported as negative for ischemia 3 Mild intermittent chronic bronchial asthma currently inactive and stable 4 Recent tooth abscess requiring extraction 5 Hypertension 6 Urinary tract infection 7 Acute on chronic kidney disease stage III Plan: The patient was seen and evaluated by Dr. Tabares. CAT scan and labs reviewed. She is currently on a heparin drip for now. Will be transitioned to oral anticoagulants. We'll await further input from cardiology. May require outpatient workup with hematology. We will continue to follow and make further recommendations based on her clinical status. I, the cosigning physician, performed a history & physical examination of the patient. Lungs sounds are clear. Maintaining good O2 saturations in the 90s on 2 L/m per nasal cannula. I discussed the assessment and plan of care with my nurse practitioner, Mei Rao. I attest to the above consultation as dictated by her. Time with Patient: Greater than 30
--- NOTE | 2019-11-10 13:44 | CONS ---
RAPHAEL Dasilva is a 69-year-old lady who is admitted to hospital with shortness of breath and palpitation. She has been having shortness of breath for a while now. Underwent pulmonary workup initially and subsequently had a cardiac stress test in September. Over the last 3 weeks, she has been feeling progressively more short of breath and has had palpitations. When she presented to the emergency room, she was in atrial tachycardia with heart rate of 130 beats per minute. D-dimer came back elevated. She went on to have a CT scan of the chest that revealed multiple bilateral pulmonary emboli. There was no right ventricular enlargement. The patient had been started on intravenous heparin and at the time of my evaluation this morning, she states her shortness of breath has improved. Heart rate has improved and she is feeling much better. PAST MEDICAL HISTORY: Significant for hypertension. MEDICATIONS: Medications at home included Symbicort, Excedrin, candesartan, hydrochlorothiazide. ALLERGIES: TO PENICILLIN AND SULFA. FAMILY HISTORY: Significant for coronary artery disease, valvular heart disease and cardiac arrhythmia. SOCIAL HISTORY: Negative for current smoking, EtOH abuse or drug abuse. REVIEW OF SYSTEMS: HEENT is unremarkable. Cardiac as described above. Respiratory as described above. GI negative. negative. Allergy negative. Musculoskeletal negative. Endocrine negative. Derm negative. Constitutional negative. Oncological negative. 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 Rest of the system review is not relevant. PHYSICAL EXAMINATION: On exam, patient is comfortable at rest. Afebrile. Heart rate is 90 beats per minute. Blood pressure is 106/75, respiratory rate 18. There is no jugular venous distention. Carotid upstroke is diminished. There is no bruit. Chest exam reveals good air entry bilaterally. Heart exam reveals first and second heart sounds. No gallop. No murmur. Abdomen is soft. Exam of extremities did not reveal any edema. Peripheral pulses are felt. LABS: Show that her troponin is elevated at 0.06. Potassium is 4.2. Creatinine is 0.9. Hemoglobin is 13.6. ASSESSMENT: 1. Acute bilateral pulmonary embolism. 2. History of hypertension. PLAN: Patient does not have any clear precipitating factors for her pulmonary embolism. There is no history of recent surgery. No history of prolonged travel. There is no prior history of pulmonary embolism. There is no history of cancer. I will obtain a 2D echo on her tomorrow. We will switch her to either Xarelto or Eliquis tomorrow depending upon her coverage. MMODL / IJN: [id number] /
[2019-11-11] MEDS: HEPARIN SOD,PORK IN 0.45% NACL 25,000 UNIT in 0.45% NACL 1 250ML.BAG IV SCH (03:19)
[2019-11-11 06:25] LABS: Basophils # (A) 0.1 k/uL (0-0.2); Basophils % (A) 1 %; Eosinophils # (A) 0.3 k/uL (0-0.7); Eosinophils % (A) 2 %; HCT 43.5 % (34.0-46.0); HGB 13.9 gm/dL (11.4-16.0); Lymphocytes # (A) 3.3 k/uL (1.0-4.8); Lymphocytes % (A) 25 %; MCH 26.7 pg (25.0-35.0); MCV 83.5 fL (80.0-100.0); Mean Platelet Volume 9.5; Monocytes # (A) 0.7 k/uL (0-1.0); Monocytes % (A) 5 %; Neutrophils # (A) 8.6 k/uL (1.3-7.7); Neutrophils % (A) 65 %; Platelet Count 234 k/uL (150-450); RBC 5.21 m/uL (3.80-5.40); WBC 13.2 k/uL (3.8-10.6)
[2019-11-11] MEDS: ASPIRIN 81 MG PO SCH (08:16)
[2019-11-11] MEDS: LOSARTAN 50 MG TAB PO SCH (08:20)
[2019-11-11] MEDS: SYMBICORT 160-4.5 MCG INHALER INHALATION SCH ×2 (09:28→20:22)
[2019-11-11] MEDS: RIVAROXABAN 15 MG TAB PO SCH ×2 (13:14→17:13)
--- NOTE | 2019-11-11 14:13 | P.PN ---
Subjective Progress Note Date: 11/11/19 Principal diagnosis: exertional dyspnea This is a very pleasant 69-year-old female patient who follows with Dr. Parkinson as her primary care provider. She has history of hypertension. She had also been seen by Dr. Richardson in the past with some mild intermittent chronic bronchial ast hma and is on Symbicort in the outpatient setting. She is a lifelong nonsmoker. She had been having issues with shortness of breath on exertion for 2 months now. In September she had a stress test that was reported as normal. She also had a tooth abscess 2 weeks ago with subsequent extraction. Otherwise she had been doing fairly well. The exertion no shortness of breath improved with rest yesterday however she was quite dyspneic with minimal exertion and tachycardic and presented the emergency room for the same. CT angiogram revealed multiple bilateral pulmonary emboli. No right ventricular heart strain or enlargement. Dopplers of the lower extremity were negative. The patient denies any sedentary lifestyle, no long car rides no plane rides no recent travel, no prior history of blood clots. No family history of blood clots, no cancer, no hemoptysis. She was initiated on a heparin drip. She is seen today in consultation on the selective care unit. She is currently awake and alert in no acute distress. Maintaining O2 saturation in the 90s on 2 L/m per nasal cannula. She's afebrile. Hemodynamically stable. White count 13.8. Hemoglobin 13.6. Sodium 137. Potassium 4.2. Creatinine 0.96. On 11/11/2019 patient seen in follow-up on selective care unit, she is awake and alert, in no acute distress. She is on room air pulse ox of 95%, no complaints of chest discomfort, pleurisy, hemodynamically she is stable. No hemoptysis. Ultrasound Dopplers of bilateral lower extremities were negative for DVT. He is on heparin infusion, she will be started on Xareltol this evening. Objective - Vital Signs Vital signs: Vital Signs Temp 98.1 F 11/11/19 04:00 Pulse 106 H 11/11/19 12:00 Resp 20 11/11/19 12:00 BP 140/65 11/11/19 12:00 Pulse Ox 95 11/11/19 12:00 Intake & Output 11/10/19 11/11/19 11/11/19 18:59 06:59 18:59 Intake Total 36.3 449.048 Output Total 260 Balance 36.3 189.048 Weight 97.3 kg Intake: Intake, IV Titration 36.3 209.048 Amount Heparin Sod,Pork in 0.45% 36.3 209.048 NaCl 25,000 unit In 0.45 % NaCl 1 250ml.bag @ 18 UNITS/KG/HR 17.309 mls/hr IV .[id number] [facility] Rx#: [id number] Oral 240 Output: Urine 260 Other: # Voids 3 1 1 # Bowel Movements 1 - Exam GENERAL EXAM: Alert, very pleasant, 69-year-old white female, on 2 L of oxygen with pulse ox of 96% comfortable in no apparent distress. HEAD: Normocephalic/atraumatic. EYES: Normal reaction of pupils, equal size. Conjunctiva pink, sclera white. NOSE: Clear with pink turbinates. THROAT: No erythema or exudates. NECK: No masses, no JVD, no thyroid enlargement, no adenopathy. CHEST: No chest wall deformity. Symmetrical expansion. LUNGS: Equal air entry with no crackles, wheeze, rhonchi or dullness. CVS: Regular rate and rhythm, normal S1 and S2, no gallops, no murmurs, no rubs ABDOMEN: Soft, nontender. No hepatosplenomegaly, normal bowel sounds, no g uarding or rigidity. EXTREMITIES: No clubbing, no edema, no cyanosis, 2+ pulses and upper and lower extremities. MUSCULOSKELETAL: Muscle strength and tone normal. SPINE: No scoliosis or deformity SKIN: No rashes CENTRAL NERVOUS SYSTEM: Alert and oriented -3. No focal deficits, tone is normal in all 4 extremities. PSYCHIATRIC: Alert and oriented -3. Appropriate affect. Intact judgment and insight. - Labs CBC & Chem 7: 11/11/19 05:34 11/10/19 06:04 Labs: Abnormal Lab Results - Last 24 Hours (Table) 11/10/19 11/11/19 11/11/19 Range/Units 14:46 05:34 05:34 WBC 13.2 H (3.8-10.6) k/uL Neutrophils # 8.6 H (1.3-7.7) k/uL APTT 65.1 H 63.0 H (22.0-30.0) sec Microbiology - Last 24 Hours (Table) 11/09/19 14:55 Blood Culture - Preliminary Blood No Growth after 24 hours Assessment and Plan Plan: Assessment: 1 Dyspnea on exertion secondary to multiple bilateral pulmonary emboli 2 Tachycardia, sinus versus A. fib RVR, recent stress test reported as negative for ischemia 3 Mild intermittent chronic bronchial asthma currently inactive and stable 4 Recent tooth abscess requiring extraction 5 Hypertension 6 Urinary tract infection 7 Acute on chronic kidney disease stage III Plan: Patient can be switched to oral anticoagulation, heparin drip can be discontinued, she will be started on Xarelto this evening, hemodynamically she remains stable, she is maintaining stable O2 saturations on room air. She will require outpatient workup with hematology as these was an unprovoked pulmonary emboli. Otherwise patient remains stable, and can be considered for discharge once cleared by cardiology I performed a history & physical examination of the patient and discussed their management with my nurse practitioner, Tiera Claudio. I reviewed the nurse practitioner's note and agree with the documented findings and plan of care. Lung sounds are clear breath sounds.. The findings and the impression was discussed with the patient. I attest to the documentation by the nurse practitioner. Time with Patient: Less than 30
--- NOTE | 2019-11-11 14:55 | P.PN ---
Subjective Progress Note Date: 11/11/19 This is a pleasant 69-year-old female with history of hypertension, asthma, lifelong nonsmoker, who presented to the hospital with symptoms of shortness of breath. Patient states been short of breath exertionally for approximately 2 months, in September she underwent a stress test that was negati ve. She also had a tooth abscess with subsequent extraction. Came to the hospital with symptoms of shortness of breath was found to be tachycardic, CT angiogram revealed multiple bilateral pulmonary embolism. No ventricular right- sided heart strain or enlargement. Dopplers of the lower extremities were negative. Patient had been on IV heparin, today we will change her over to oral anticoagulation. Plan for possible discharge home in 24-48 hours if stable. Objective - Vital Signs Vital signs: Vital Signs Temp 98.1 F 11/11/19 04:00 Pulse 106 H 11/11/19 12:00 Resp 20 11/11/19 12:00 BP 140/65 11/11/19 12:00 Pulse Ox 95 11/11/19 12:00 Intake & Output 11/10/19 11/11/19 11/11/19 18:59 06:59 18:59 Intake Total 36.3 449.048 Output Total 260 Balance 36.3 189.048 Weight 97.3 kg Intake: Intake, IV Titration 36.3 209.048 Amount Heparin Sod,Pork in 0.45% 36.3 209.048 NaCl 25,000 unit In 0.45 % NaCl 1 250ml.bag @ 18 UNITS/KG/HR 17.309 mls/hr IV .[id number] [facility] Rx#: [id number] Oral 240 Output: Urine 260 Other: # Voids 3 1 1 # Bowel Movements 1 - Exam GENERAL EXAM: Alert, active, pleasant 69-year-old female patient, on 2 L nasal cannula, comfortable in no apparent distress. HEAD: Normocephalic. EYES: Normal reaction of pupils, equal size. NOSE: Clear with pink turbinates. THROAT: No erythema or exudates. NECK: No masses, no JVD. CHEST: No chest wall deformity. LUNGS: Equal air entry with no crackles, wheeze, rhonchi or dullness. CVS: S1 and S2 normal with no audible murmur, regular rhythm. ABDOMEN: No hepatosplenomegaly, normal bowel sounds, no guarding or rigidity. SPINE: No scoliosis or deformity SKIN: No rashes CENTRAL NERVOUS SYSTEM: No focal deficits, tone is normal in all 4 extremities. EXTREMITIES: There is no peripheral edema. No clubbing, no cyanosis. Peripheral pulses are intact. - Labs CBC & Chem 7: 11/11/19 05:34 11/10/19 06:04 Labs: Abnormal Lab Results - Last 24 Hours (Table) 11/10/19 11/11/19 11/11/19 Range/Units 14:46 05:34 05:34 WBC 13.2 H (3.8-10.6) k/uL Neutrophils # 8.6 H (1.3-7.7) k/uL APTT 65.1 H 63.0 H (22.0-30.0) sec Microbiology - Last 24 Hours (Table) 11/09/19 14:55 Blood Culture - Preliminary Blood No Growth after 24 hours Assessment and Plan Plan: Assessment and plan: #1 Dyspnea on exertion secondary to multiple bilateral pulmonary emboli #2 Tachycardia, sinus versus A. fib RVR, recent stress test reported as negative for ischemia #3 Mild intermittent chronic bronchial asthma currently inactive and stable #4 Recent tooth abscess requiring extraction #5 Hypertension #6 Urinary tract infection #7 Acute on chronic kidney disease stage III Plan IV heparin will be discontinued, patient will be initiated on Xarelto 15 mg one tablet by mouth twice a day for 21 days, then the patient will be on xarelto 20 mg daily. We'll continue to monitor for 24-48 hours. DNP note has been reviewed, I agree with a documented findings and plan of care. Patient was seen and examined.
--- NOTE | 2019-11-11 16:47 | P.PN ---
Subjective Progress Note Date: 11/11/19 The patient was seen and examined at the bedside on 11/11 @ 0920. She reported feeling well and noted no further episodes of shortness of breath or chest discomfort. She denied cough, fever, chills, nausea, vomiting, or abdominal pain. Objective - Vital Signs Vital signs: Vital Signs Temp 98.1 F 11/11/19 04:00 Pulse 106 H 11/11/19 12:00 Resp 20 11/11/19 12:00 BP 140/65 11/11/19 12:00 Pulse Ox 95 11/11/19 12:00 Intake & Output 11/10/19 11/11/19 11/11/19 18:59 06:59 18:59 Intake Total 36.3 449.048 Output Total 260 Balance 36.3 189.048 Weight 97.3 kg Intake: Intake, IV Titration 36.3 209.048 Amount Heparin Sod,Pork in 0.45% 36.3 209.048 NaCl 25,000 unit In 0.45 % NaCl 1 250ml.bag @ 18 UNITS/KG/HR 17.309 mls/hr IV .[id number] [facility] Rx#: [id number] Oral 240 Output: Urine 260 Other: # Voids 3 1 1 # Bowel Movements 1 - Exam General: Non-toxic, in no acute distress, appears stated age, obese HEENT: NC/AT, anicteric sclerae, moist conjunctiva, no lid-lag, PERRLA Cardiovascular: S1/S2 wnl, no murmurs, rubs, or gallops Lungs: Clear to auscultation, normal respiratory effort, no accessory muscle use Abdominal: Soft, non-tender, non-distended, no guarding, rebound, or rigidity Skin: Warm, dry Extremities: No edema or contractures, no lower extremity erythema, or tenderness noted Psychiatric: Alert and oriented to person, place and time, appropriate affect Neuro: CN II-XII grossly intact, Strength 5/5 in all 4 extremities, Speech intact, Sensation to light touch grossly intact throughout - Labs CBC & Chem 7: 11/12/19 06:13 11/10/19 06:04 Labs: Abnormal Lab Results - Last 24 Hours (Table) 11/11/19 11/11/19 Range/Units 05:34 05:34 WBC 13.2 H (3.8-10.6) k/uL Neutrophils # 8.6 H (1.3-7.7) k/uL APTT 63.0 H (22.0-30.0) sec Microbiology - Last 24 Hours (Table) 11/09/19 14:55 Blood Culture - Preliminary Blood No Growth after 24 hours Assessment and Plan Plan: Acute caroline PE -Patient switched from Heparin to Xarelto by Cardiology -C/w supplemental oxygen -Monitor for another 24 hours with possible discharge in am -Cardiac monitoring Troponin elevation -Cardiology recs appreciated -Recent stress test negative -Likely due to demand Afib with RVR -C/w Xarelto with Cardiac monitoring UTI -C/w Ceftriaxone and f/u Urine cultures
[2019-11-12] MEDS: RIVAROXABAN 15 MG TAB PO SCH (06:16)
[2019-11-12 07:03] LABS: Basophils % (A) 0 %; Eosinophils # (A) 0.4 k/uL (0-0.7); Eosinophils % (A) 4 %; HCT 38.4 % (34.0-46.0); HGB 12.5 gm/dL (11.4-16.0); Lymphocytes # (A) 2.2 k/uL (1.0-4.8); Lymphocytes % (A) 22 %; MCHC 32.6 g/dL (31.0-37.0); MCV 82.8 fL (80.0-100.0); Mean Platelet Volume 9.5; Monocytes # (A) 0.5 k/uL (0-1.0); Monocytes % (A) 5 %; Neutrophils # (A) 6.9 k/uL (1.3-7.7); Neutrophils % (A) 67 %; Platelet Count 201 k/uL (150-450); RBC 4.64 m/uL (3.80-5.40); RDW 12.9 % (11.5-15.5); WBC 10.3 k/uL (3.8-10.6)
[2019-11-12] MEDS: SYMBICORT 160-4.5 MCG INHALER INHALATION SCH (08:34)
[2019-11-12] MEDS: LOSARTAN 50 MG TAB PO SCH (08:57)
[2019-11-12] MEDS: ASPIRIN 81 MG PO SCH (08:57)
--- NOTE | 2019-11-12 11:33 | P.PN ---
Subjective Progress Note Date: 11/12/19 Principal diagnosis: exertional dyspnea This is a very pleasant 69-year-old female patient who follows with Dr. Parkinson as her primary care provider. She has history of hypertension. She had also been seen by Dr. Richardson in the past with some mild intermittent chronic bronchial ast hma and is on Symbicort in the outpatient setting. She is a lifelong nonsmoker. She had been having issues with shortness of breath on exertion for 2 months now. In September she had a stress test that was reported as normal. She also had a tooth abscess 2 weeks ago with subsequent extraction. Otherwise she had been doing fairly well. The exertion no shortness of breath improved with rest yesterday however she was quite dyspneic with minimal exertion and tachycardic and presented the emergency room for the same. CT angiogram revealed multiple bilateral pulmonary emboli. No right ventricular heart strain or enlargement. Dopplers of the lower extremity were negative. The patient denies any sedentary lifestyle, no long car rides no plane rides no recent travel, no prior history of blood clots. No family history of blood clots, no cancer, no hemoptysis. She was initiated on a heparin drip. She is seen today in consultation on the selective care unit. She is currently awake and alert in no acute distress. Maintaining O2 saturation in the 90s on 2 L/m per nasal cannula. She's afebrile. Hemodynamically stable. White count 13.8. Hemoglobin 13.6. Sodium 137. Potassium 4.2. Creatinine 0.96. On 11/11/2019 patient seen in follow-up on selective care unit, she is awake and alert, in no acute distress. She is on room air pulse ox of 95%, no complaints of chest discomfort, pleurisy, hemodynamically she is stable. No hemoptysis. Ultrasound Dopplers of bilateral lower extremities were negative for DVT. He is on heparin infusion, she will be started on Xareltol this evening. On 11/12/2019 patient is seen in follow-up on selective care unit, she is alert, oriented 3, no acute distress, no shortness of breath, no chest pain, no hematemesis, vital signs are stable, room air pulse ox is 95%, no acute events overnight, heparin drip has been discontinued, patient has been transitioned to Xarelto. Objective - Vital Signs Vital signs: Vital Signs Temp 97.6 F 11/12/19 08:00 Pulse 85 11/12/19 08:00 Resp 17 11/12/19 08:00 BP 122/68 11/12/19 08:00 Pulse Ox 95 11/12/19 08:00 Intake & Output 11/11/19 11/12/19 11/12/19 18:59 06:59 18:59 Intake Total 360 Output Total 300 Balance -300 360 Weight 97.8 kg Intake: Oral 360 Output: Urine 300 Other: Voiding Method Toilet # Voids 1 1 1 # Bowel Movements 0 - Exam GENERAL EXAM: Alert, very pleasant, 69-year-old white female, on 2 L of oxygen with pulse ox of 96% comfortable in no apparent distress. HEAD: Normocephalic/atraumatic. EYES: Normal reaction of pupils, equal size. Conjunctiva pink, sclera white. NOSE: Clear with pink turbinates. THROAT: No erythema or exudates. NECK: No masses, no JVD, no thyroid enlargement, no adenopathy. CHEST: No chest wall deformity. Symmetrical expansion. LUNGS: Equal air entry with no crackles, wheeze, rhonchi or dullness. CVS: Regular rate and rhythm, normal S1 and S2, no gallops, no murmurs, no rubs ABDOMEN: Soft, nontender. No hepatosplenomegaly, normal bowel sounds, no guardi ng or rigidity. EXTREMITIES: No clubbing, no edema, no cyanosis, 2+ pulses and upper and lower extremities. MUSCULOSKELETAL: Muscle strength and tone normal. SPINE: No scoliosis or deformity SKIN: No rashes CENTRAL NERVOUS SYSTEM: Alert and oriented -3. No focal deficits, tone is normal in all 4 extremities. PSYCHIATRIC: Alert and oriented -3. Appropriate affect. Intact judgment and insight. - Labs CBC & Chem 7: 11/12/19 06:13 11/10/19 06:04 Labs: Abnormal Lab Results - Last 24 Hours (Table) 11/12/19 Range/Units 06:13 APTT 30.2 H (22.0-30.0) sec Microbiology - Last 24 Hours (Table) 11/09/19 14:55 Blood Culture - Preliminary Blood No Growth after 48 hours Assessment and Plan Plan: Assessment: 1 Dyspnea on exertion secondary to multiple bilateral pulmonary emboli 2 Tachycardia, sinus versus A. fib RVR, recent stress test reported as negative for ischemia 3 Mild intermittent chronic bronchial asthma currently inactive and stable 4 Recent tooth abscess requiring extraction 5 Hypertension 6 Urinary tract infection 7 Acute on chronic kidney disease stage III Plan: Patient is doing well, has been transitioned to oral anticoagulation, hemodynamically stable, hemodynamically stable, she is on room air, tolerating ambulation, she is clear for discharge home from pulmonary perspective, follow up on an outpatient basis with Dr. Hanna in 1 week. At 3 months follow-up the need for continued anticoagulation will be reviewed I performed a history & physical examination of the patient and discussed their management with my nurse practitioner, Tiera Claudio. I reviewed the nurse practitioner's note and agree with the documented findings and plan of care. Lung sounds are clear breath sounds.. The findings and the impression was discussed with the patient. I attest to the documentation by the nurse pr actitioner. Time with Patient: Less than 30
[2019-11-12 11:56] VITALS: BP 122/74; PULSE 84; RESP 18; TEMP 97.8
--- NOTE | 2019-11-12 13:36 | P.PN ---
Subjective Progress Note Date: 11/12/19 This is a pleasant 69-year-old female with history of hypertension, asthma, lifelong nonsmoker, who presented to the hospital with symptoms of shortness of breath. Patient states been short of breath exertionally for approximately 2 months, in September she underwent a stress test that was negati ve. She also had a tooth abscess with subsequent extraction. Came to the hospital with symptoms of shortness of breath was found to be tachycardic, CT angiogram revealed multiple bilateral pulmonary embolism. No ventricular right- sided heart strain or enlargement. Dopplers of the lower extremities were negative. Patient had been on IV heparin, today we will change her over to oral anticoagulation. Plan for possible discharge home in 24-48 hours if stable. 11/12/2019 Patient seen and examined this morning, doing well, breathing is stable, ambulating without any difficulty. Denies any chest discomfort. Blood pressure 122/70 with a heart rate in the 80s, 95% on room air. White blood cell count 10.3, hemoglobin 12.5, platelet count 201. Objective - Vital Signs Vital signs: Vital Signs Temp 97.8 F 11/12/19 11:54 Pulse 84 11/12/19 11:54 Resp 18 11/12/19 11:54 BP 122/74 11/12/19 11:54 Pulse Ox 95 11/12/19 11:54 Intake & Output 11/11/19 11/12/19 11/12/19 18:59 06:59 18:59 Intake Total 360 Output Total 300 Balance -300 360 Weight 97.8 kg Intake: Oral 360 Output: Urine 300 Other: Voiding Method Toilet # Voids 1 1 1 # Bowel Movements 0 - Exam GENERAL EXAM: Alert, active, pleasant 69-year-old female patient, on 2 L nasal cannula, comfortable in no apparent distress. HEAD: Normocephalic. EYES: Normal reaction of pupils, equal size. NOSE: Clear with pink turbinates. THROAT: No erythema or exudates. NECK: No masses, no JVD. CHEST: No chest wall deformity. LUNGS: Equal air entry with no crackles, wheeze, rhonchi or dullness. CVS: S1 and S2 normal with no audible murmur, regular rhythm. ABDOMEN: No hepatosplenomegaly, normal bowel sounds, no guarding or rigidity. SPINE: No scoliosis or deformity SKIN: No rashes CENTRAL NERVOUS SYSTEM: No focal deficits, tone is normal in all 4 extremities. EXTREMITIES: There is no peripheral edema. No clubbing, no cyanosis. Peripheral pulses are intact. - Labs CBC & Chem 7: 11/12/19 06:13 11/10/19 06:04 Labs: Abnormal Lab Results - Last 24 Hours (Table) 11/12/19 Range/Units 06:13 APTT 30.2 H (22.0-30.0) sec Microbiology - Last 24 Hours (Table) 11/09/19 14:55 Blood Culture - Preliminary Blood No Growth after 48 hours Assessment and Plan Plan: Assessment and plan: #1 Dyspnea on exertion secondary to multiple bilateral pulmonary emboli #2 Tachycardia, sinus versus A. fib RVR, recent stress test reported as negative for ischemia #3 Mild intermittent chronic bronchial asthma currently inactive and stable #4 Recent tooth abscess requiring extraction #5 Hypertension #6 Urinary tract infection #7 Acute on chronic kidney disease stage III Plan Patient may be discharged home today from cardiology's perspective on Xarelto per PE protocol. Follow-up appointment will be made in the office post discharge. DNP note has been reviewed, I agree with a documented findings and plan of care. Patient was seen and examined.
--- NOTE | 2019-11-12 13:52 | P.DS ---
Providers Date of admission: 11/09/19 16:00 Expected date of discharge: 11/12/19 Attending physician: Sarbjit Juares MD Consults: 11/09/19 16:36 Consult Physician Stat Consulting Provider: Riki Hanna Consult Reason/Comments: acute pe Do you want consulting provider notified?: Yes 11/09/19 17:44 Consult Physician Routine Consulting Provider: Missael Pack Consult Reason/Comments: afib/rvr; elevated trop. Bilat PE Do you want consulting provider notified?: Yes Primary care physician: [facility] Course: The patient is 69-year-old female with a PMH of hypertension and asthma who presented to the ED with a complaint of shortness of breath. The patient reported that she was recently sick for the previous few weeks and had developed dental abscess for which she was following with her dentist. The patient had reported that she recently had then developed dyspnea on exertion which gradually worsened over a period of one week or so. The patient subsequently presented to the emergency room where she underwent an extensive evaluation with a chest CTA which revealed bilateral acute pulmonary emboli. Lower extremity venous duplex was negative for DVT. The patient also had endorsed some chest discomfort, pressure-like in nature. Cardiology was consulted and noted the patient's mild troponin elevation was likely due to stress from acute PEs. The patient also had endorsed some urinary complaints with an abnormal UA consistent with UTI for which she was started on ceftriaxone. The patient was initially started on heparin infusion which was then switched over to Xarelto. Patient was seen and examined at the bedside on the day of discharge. She reported feeling well and denied active complaints. She noted that her shortness of breath and chest discomfort had fully resolved. She also reported no further dysuria or urinary complaints. The patient was advised that if her symptoms recur or worsen, that she should return to the emergency room. The patient was also advised on the importance of follow-up with hematology for possible hypercoagulability workup as an outpatient. Physical Examination General: Non-toxic, in no acute distress, appears stated age, normal weight HEENT: NC/AT, anicteric sclerae, moist conjunctiva, no lid-lag, PERRLA Cardiovascular: S1/S2 wnl, no murmurs, rubs, or gallops Lungs: Clear to auscultation, normal respiratory effort, no accessory muscle use Abdominal: Soft, non-tender, non-distended, no guarding, rebound, or rigidity Skin: Warm, dry Extremities: No edema or contractures Psychiatric: Alert and oriented to person, place and time, appropriate affect Neuro: CN II-XII grossly intact, Strength 5/5 in all 4 extremities, Speech intact, Sensation to light touch grossly intact throughout Discharge diagnosis: Acute bilateral pulmonary emboli; troponin elevation; atrial fibrillation with RVR; urinary tract infection; mild intermittent asthma; hypertension; MARIA, resolved; recent tooth abscess requiring extraction A total of 40 minutes of time were spent preparing this complex discharge summary. Patient Condition at Discharge: Stable Plan - Discharge Summary Discharge Rx Participant: Yes New Discharge Prescriptions: New Nitrofurantoin Monohyd/M-Cryst [Macrobid] 100 mg PO Q12HR #6 cap Rivaroxaban [Xarelto Starter Pack] 0 mg PO DIRECTED 30 Days #1 pack Continue Budesonide/Formoterol Fumarate [Symbicort 160-4.5 Mcg Inhaler] 2 puff INHALATION RT-BID Zicam Allergy Tabs 1 tab PO DAILY PRN PRN Reason: Allergy Symptoms Candesartan/Hydrochlorothiazid [Candesartan/Hydrochlorothiazid 16-12.5 mg] 1 tab PO QAM Acetaminophen-Codeine 300-30mg [Tylenol w/codeine #3] 1 tab PO Q4H PRN PRN Reason: Pain Discontinued Ffxmodx-Msoe-Dvzy 179-106-15Np [Excedrin] 1 tab PO BID PRN PRN Reason: Migraine Headache Discharge Medication List Acetaminophen-Codeine 300-30mg [Tylenol w/codeine #3] 1 tab PO Q4H PRN 11/09/19 [History] Budesonide/Formoterol Fumarate [Symbicort 160-4.5 Mcg Inhaler] 2 puff INHALATION RT-BID 11/09/19 [History] Candesartan/Hydrochlorothiazid [Candesartan/Hydrochlorothiazid 16-12.5 mg] 1 tab PO QAM 11/09/19 [History] Zicam Allergy Tabs 1 tab PO DAILY PRN 11/09/19 [History] Nitrofurantoin Monohyd/M-Cryst [Macrobid] 100 mg PO Q12HR #6 cap 11/12/19 [Rx] Rivaroxaban [Xarelto Starter Pack] 0 mg PO DIRECTED 30 Days #1 pack 11/12/19 [Rx] Follow up Appointment(s)/Referral(s): Ney Vance MD [STAFF PHYSICIAN] - 12/24/19 2:00 pm (Monday Appointment is at [facility] [employer] [facility]) Gee Parkinson MD [Primary Care Provider] - 11/18/19 3:45 pm (Monday) Riki Hanna DO [Doctor of Osteopathic Medicine] - 11/21/19 10:00 am () Missael Pack MD [STAFF PHYSICIAN] - 11/19/19 11:30 am (Monday) Patient Instructions/Handouts: Pulmonary Embolism (DC), Safe Use of Anticoagulants (DC) Activity/Diet/Wound Care/Special Instructions: pts 30 day copay for Xarelto is $45, free coupon applied to pts first month which is filled in [facility] pharmacy. It is taken 15mg 2 x day for 21 days then 20mg daily Discharge Disposition: HOME SELF-CARE
--- NOTE | 2019-11-14 13:52 | CDI ---
Documentation Clarification Form Date: 11/14/2019 01:35:36 PM From: Cathy Cullen Phone: If you have a question about this query, please contact Valarie Kruse Senior Qa Tester at [phone] between 8am and 5pm. Admit Date: 11/09/2019 04:00:00 PM Patient Name: Vidya Meza Visit Number: [id number] Discharge Date: 11/12/2019 01:37:00 PM ATTENTION: The Clinical Documentation Specialists (CDI) and [facility] Coding Staff appreciate your assistance in clarifying documentation. Please respond to the clarification below the line at the bottom and electronically sign. The CDI & [facility] Coding staff will review the response and follow-up if needed. Please note: Queries are made part of the Legal Health Record. If you have any questions, please contact the author of this message via ITS. Dr. Chino Poole Type II Myocardial infarction is documented in the H and P. 11/11 PN documents, elevated troponin possibly due to demand, DCS documents troponin elevation. Please clarify. Clinical Indicators: Patient with PE's elevated troponin atrial fib, tachy HR 130, HTN, family hx. Troponin:0.0666 EKG Results:atrial fib Treatment: IV heparin Consult: Cardiology For accurate documentation please clarify if patient had Type II DC or was this ruled out. Type II DC elevated troponin demand ischemia Unable to determine Other Condition, please specify MTDD
[2019-12-02] MEDS ORDERED: RIVAROXABAN 20 MG TAB PO SCH (17:30)
== END 2019-11-12 13:37 | disposition home or self-care (01) | DRG 176 ==
LOC: EC 12:28 → 3SCARD 16:00
PROVIDERS: ADMIT Internal Medicine Geriatric Medicine; ATTEND Internal Medicine Geriatric Medicine
DX: I26.99 Other pulmonary embolism without acute cor pulmonale (principal); I47.1 Supraventricular tachycardia; N17.9 Acute kidney failure, unspecified; N39.0 Urinary tract infection, site not specified; I24.8 Other forms of acute ischemic heart disease; I48.91 Unspecified atrial fibrillation; J45.20 Mild intermittent asthma, uncomplicated; J44.9 Chronic obstructive pulmonary disease, unspecified; N18.3 Chronic kidney disease, stage 3 (moderate); Z79.51 Long term (current) use of inhaled steroids; Z82.49 Family history of ischemic heart disease and other diseases of the circulatory system; Z87.891 Personal history of nicotine dependence; I12.9 Hypertensive chronic kidney disease with stage 1 through stage 4 chronic kidney disease, or unspecified chronic kidney disease; Z88.0 Allergy status to penicillin; Z88.2 Allergy status to sulfonamides; R79.89 Other specified abnormal findings of blood chemistry
CPT/HCPCS: 36415; 71046; 71275; 80048; 80053; 81001; 83735; 84443; 84484; 85025; 85379; 85610; 85730; 87040; 93005; 93970; 94640; 96361; 96365; 96375; 96376; 99285

== ENCOUNTER → 2020-03-31 | Outpatient (CLI) | payer MEDICARE ==
--- NOTE | 2020-03-31 20:09 | CT ---
EXAMINATION TYPE: CT angio chest DATE OF EXAM: 03/31/2020 COMPARISON: 11/09/2019 HISTORY: 69-year-old female Follow up PE. TECHNIQUE: Contiguous axial scanning of the chest performed with IV Contrast, patient injected with 6 1 mL of Isovue 370. Coronal/sagittal MIP reconstructions performed. CT DLP: 342.7 mGycm Automated exposure control for dose reduction was used. FINDINGS: Heart upper limits of normal in size without pericardial effusion. No flattening of the interventricu lar septum or reflux of contrast into the hepatic veins. Aorta normal caliber with conventional branching anatomy. No thoracic lymph adenopathy by CT size criteria. Stable 8 mm AP window lymph node. Stable right hilar lymph nodes measuring up to 9 mm. Stable 5 mm left hilar lymph node. Satisfactory opacification of the pulmonary arterial system. 7 mm and 6 mm right suprahilar lymph nodes located along the bronchovascular bundles, reference axial image 47 and 50 are unchanged. Minimal residual subsegmental branch embolic material is present in the basilar left lower lobe, axia l image 93 and axial image 82. The vast majority of the bilateral clot has cleared in the interval. Visualized upper abdomen shows multiple hepatic cysts. There is a conglomerate of cysts in the left h epatic dome measuring up to 7.1 x 4.4 cm. Bones: Anterior endplate spondylosis midthoracic spine. Right paracentral disc herniation at T8-T9. N o osseous destructive process. IMPRESSION: 1. THE VAST MAJORITY OF THE BILATERAL PULMONARY EMBOLI HAS CLEARED IN THE INTERVAL. MINIMAL RESIDUAL SUBSEGMENTAL BRANCH CLOT REMAINS IN THE BASILAR LEFT LOWER LOBE, AXIAL IMAGE 82 AND 93. 2. A COUPLE CENTRALLY LOCATED RIGHT SUPRAHILAR PULMONARY NODULES MEASURING UP TO 7 MM REMAIN UNCHANGE D FOR 4 MONTHS. ADDITIONAL 9 MONTH FOLLOW-UP CT RECOMMENDED TO REASSESS. 3. PROMINENT HILAR LYMPH NODES MEASURING UP TO 9 MM, PROBABLY REACTIVE/POST INFLAMMATORY AND SHOULD A LSO BE REASSESSED AT THAT TIME.
== END | disposition home or self-care (01) ==
LOC: RADCTMAIN 15:05
PROVIDERS: ATTEND Internal Medicine Critical Care Medicine
DX: I26.99 Other pulmonary embolism without acute cor pulmonale (principal); R91.8 Other nonspecific abnormal finding of lung field; Z88.0 Allergy status to penicillin; Z88.2 Allergy status to sulfonamides
CPT/HCPCS: 82565; 84520; 71275; 36415; Q9967

== ENCOUNTER → 2020-08-13 | Outpatient (CLI) | payer MEDICARE ==
--- NOTE | 2020-08-14 13:42 | MM ---
Reason for exam: screening (asymptomatic). Last mammogram was performed 1 year and 2 months ago. History: Patient is postmenopausal. Family history of breast cancer in sister at age 61 and breast cancer in paternal grandmother. Took hormonal contraceptives for 2 years. Took estrogen for 5 years. Took progesterone for 5 years. Physical Findings: A clinical breast exam by your physician is recommended on an annual basis and results should be correlated with mammographic findings. MG 3D Screening Mammo W/Cad Bilateral CC and MLO view(s) were taken. Prior study comparison: June 18, 2019, bilateral MG 3d screening mammo w/cad. May 23, 2018, bilateral MG 3d screening mammo w/cad. The breast tissue is almost entirely fat. No significant changes when compared with prior studies. ASSESSMENT: Benign, BI-RAD 2 RECOMMENDATION: Routine screening mammogram of both breasts in 1 year.
== END | disposition home or self-care (01) ==
LOC: RADMAMWWP 08:25
PROVIDERS: ATTEND Obstetrics & Gynecology
DX: Z12.31 Encounter for screening mammogram for malignant neoplasm of breast (principal)
CPT/HCPCS: 77063; 77067

== ENCOUNTER → 2020-11-30 | Outpatient (CLI) | payer MEDICARE ==
--- NOTE | 2020-11-30 13:33 | CT ---
EXAMINATION TYPE: CT angio chest DATE OF EXAM: 11/30/2020 12:26 PM COMPARISON: CT March 31, 2020 HISTORY: Pulmonary embolism, prior abnormal CT CT DLP: 478 mGycm Automated exposure control for dose reduction was used. CONTRAST: CTA scan of the thorax is performed with IV Contrast, patient injected with 61 mL of Isovue 370, pulm onary embolism protocol. MIP images are created and reviewed. FINDINGS: LUNGS: Lobulated contour to right hemidiaphragm is redemonstrated. Mild linear scarring in the lower lungs remains present. Stable 3 to 4 mm anterior right midlung nodule image [address] study[address] Stable anterior 4 to 5 mm right basilar nodule image 84 from the last 2 CT studies. There is 6 x 5 mm posterior left basilar nodule axial image 90 stable from last 2 CT studies. No definitive new or enl arging greater than 5 mm nodules. Lungs remain clear. No pleural effusion or pneumothorax seen MEDIASTINUM: There are stable prominent bilateral hilar lymph nodes redemonstrated. Satisfactory enha ncement pulmonary arteries, no new or residual pulmonary embolism on current study No cardiomegaly o r pericardial effusion is seen. OTHER: Scattered thin-walled cysts throughout the liver remain present. Moderate generalized fat rep laced atrophy redemonstrated. Moderate multilevel anterior lateral spurring centered mid thoracic spi ne redemonstrated. IMPRESSION: No residual or new acute pulmonary embolism on current study. Stable scattered small bila teral pulmonary nodules. No acute pulmonary process.
== END ==
LOC: RADCTMAIN 11:10
PROVIDERS: ATTEND Internal Medicine Critical Care Medicine
DX: I26.99 Other pulmonary embolism without acute cor pulmonale (principal)
CPT/HCPCS: 82565; 84520; 71275; 36415; Q9967

== ENCOUNTER → 2021-09-23 | Outpatient (CLI) | payer MEDICARE ==
--- NOTE | 2021-09-27 12:10 | MM ---
Reason for exam: screening (asymptomatic). Last mammogram was performed 1 year and 1 month ago. History: Patient is postmenopausal. Family history of breast cancer in sister at age 61 and breast cancer in paternal grandmother. Took hormonal contraceptives for 2 years. Took estrogen for 5 years. Took progesterone for 5 years. Physical Findings: A clinical breast exam by your physician is recommended on an annual basis and results should be correlated with mammographic findings. MG 3D Screening Mammo W/Cad Bilateral CC and MLO view(s) were taken. Prior study comparison: August 13, 2020, bilateral MG 3d screening mammo w/cad. June 18, 2019, bilateral MG 3d screening mammo w/cad. There are scattered fibroglandular densities. There is chronic nodularity in the left breast. Benign vascular calcifications. No significant changes when compared with prior studies. ASSESSMENT: Negative, BI-RAD 1 RECOMMENDATION: Routine screening mammogram of both breasts in 1 year.
== END | disposition home or self-care (01) ==
LOC: RADMAMWWP 09:16
PROVIDERS: ATTEND Obstetrics & Gynecology
DX: Z12.31 Encounter for screening mammogram for malignant neoplasm of breast (principal); Z80.3 Family history of malignant neoplasm of breast; Z78.0 Asymptomatic menopausal state
CPT/HCPCS: 77063; 77067

== ENCOUNTER → 2021-12-07 | Outpatient (CLI) | payer MEDICARE ==
[2021-12-07 15:22] LABS: Basophils # (A) 0.05 X 10*3/uL (0.00-0.10); Basophils % (A) 0.7 %; Eosinophils # (A) 0.23 X 10*3/uL (0.04-0.35); HGB 14.7 g/dL (12.0-15.0); Immature Grans, Automated 0.4 %; Lymphocytes % (A) 32.7 %; MCH 25.4 pg (27.0-32.0); MCV 84.8 fL (80.0-97.0); Monocytes # (A) 0.68 X 10*3/uL (0.20-1.00); Monocytes % (A) 8.9 %; NRBC Per 100 WBC 0 /100 WBCS (0.0-0.0); Neutrophils # (A) 4.15 X 10*3/uL (1.80-7.70); Neutrophils % (A) 54.3 %; Platelet Count 286 X 10*3/uL (140-440); RBC 5.78 X 10*6/uL (4.10-5.20); RDW 13.4 % (11.5-14.5); WBC 7.64 X 10*3/uL (4.50-10.00)
[2021-12-07 16:38] LABS: ALT 17 U/L (8-44); AST 22 U/L (13-35); African American GFR (CKD) 70.5 (60.0-200.0); Albumin 4.4 g/dL (3.8-4.9); Albumin/Globulin Ratio 1.33 (1.60-3.17); Alkaline Phosphatase 81 U/L (41-126); BUN/Creat Ratio 14.48 Ratio (12.00-20.00); Blood Urea Nitrogen 13.5 mg/dL (9.0-27.0); Calcium 9.7 mg/dL (8.7-10.3); Carbon Dioxide 23.2 mmol/L (20.0-27.5); Chloride 100 mmol/L (96-109); Chol/HDL Ratio 2.94 Ratio; Globulin 3.3 g/dL (1.6-3.3); Glucose 104 mg/dL (70-110); LDL Cholesterol,Calculated 91.8 mg/dL (0.0-131.0); Non-African American GFR(CKD) 60.8 (60.0-200.0); Potassium 4.1 mmol/L (3.5-5.5); Sodium 138 mmol/L (135-145); Total Protein 7.7 g/dL (6.2-8.2)
== END | disposition home or self-care (01) ==
LOC: LABWHC1 08:46
PROVIDERS: ATTEND Internal Medicine Critical Care Medicine
DX: I10 Essential (primary) hypertension (principal); I26.99 Other pulmonary embolism without acute cor pulmonale; J30.9 Allergic rhinitis, unspecified; R05.9 Cough, unspecified
CPT/HCPCS: 36415; 80053; 80061; 82306; 83036; 84439; 84443; 85025

== ENCOUNTER → 2022-09-26 | Outpatient (CLI) | payer MEDICARE ==
--- NOTE | 2022-09-27 18:12 | MM ---
Reason for Exam: Screening (asymptomatic). Last screening mammogram was performed 12 month(s) ago. Patient History: Menarche at age 11. First Full-Term at age 14. Postmenopausal. Patient has history of breast feeding. Estrogen for 5 years until age 49. Progesterone for 5 years until age 49. Patient used Hormonal Contraceptives for 2 years. Paternal grandmother had breast cancer. Sister had breast cancer, age 61. Risk Values: [place] 5 year model risk: 3.3%. NCI Lifetime model risk: 7.5%. Prior Study Comparison: 04/19/2016 Bilateral Screening Mammogram, [facility]. 04/26/2017 Bilateral Screening Mammogram, [facility]. 05/23/2018 Bilateral Screening Mammogram, [facility]. 06/18/2019 Bilateral Screening Mammogram, [facility]. 08/13/2020 Bilateral Screening Mammogram, [facility]. 09/23/2021 Bilateral Screening Mammogram, [facility]. Tissue Density: There are scattered fibroglandular densities. Findings: Analyzed By CAD. There is no suspicious group of microcalcifications or new suspicious mass in either breast. Overall Assessment: Negative, BI-RAD 1 Management: Screening Mammogram of both breasts in 1 year. 1. Patient should continue monthly self breast exams. 2. A clinical breast exam by your physician is recommended on an annual basis. 3. This exam should not preclude additional follow-up of suspicious palpable abnormalities. Electronically signed and approved by: Brittni Palumbo M.D. Radiologist
== END | disposition home or self-care (01) ==
LOC: RADMAMWWP 09:29
PROVIDERS: ATTEND Obstetrics & Gynecology
DX: Z12.31 Encounter for screening mammogram for malignant neoplasm of breast (principal); Z78.0 Asymptomatic menopausal state; Z80.3 Family history of malignant neoplasm of breast
CPT/HCPCS: 77063; 77067

== ENCOUNTER → 2023-01-03 | Outpatient (CLI) | payer MEDICARE ==
[2023-01-03 15:32] LABS: Basophils # (A) 0.06 X 10*3/uL (0.00-0.10); Basophils % (A) 0.6 %; Eosinophils # (A) 0.23 X 10*3/uL (0.04-0.35); Eosinophils % (A) 2.4 %; HCT 47.5 % (37.2-46.3); HGB 14.6 g/dL (12.0-15.0); Immature Grans, Automated 0.6 %; Lymphocytes # (A) 2.56 X 10*3/uL (0.90-5.00); Lymphocytes % (A) 26.6 %; MCH 26.4 pg (27.0-32.0); MCHC 30.7 g/dL (32.0-37.0); MCV 85.7 fL (80.0-97.0); Mean Platelet Volume 12.4 fL (9.5-12.2); Monocytes # (A) 0.86 X 10*3/uL (0.20-1.00); Monocytes % (A) 8.9 %; NRBC Per 100 WBC 0 /100 WBCS (0.0-0.0); Neutrophils # (A) 5.85 X 10*3/uL (1.80-7.70); Neutrophils % (A) 60.9 %; Platelet Count 291 X 10*3/uL (140-440); RBC 5.54 X 10*6/uL (4.10-5.20); RDW 13.4 % (11.5-14.5); WBC 9.62 X 10*3/uL (4.50-10.00)
[2023-01-03 15:54] LABS: ALT 20 U/L (8-44); AST 19 U/L (13-35); African American GFR (CKD) 60.6 (60.0-200.0); Albumin 4.2 g/dL (3.8-4.9); Alkaline Phosphatase 87 U/L (41-126); Bilirubin, Conjugated <0.20 mg/dL (0.20-0.40); Blood Urea Nitrogen 14.6 mg/dL (9.0-27.0); Calcium 10.1 mg/dL (8.7-10.3); Carbon Dioxide 26.4 mmol/L (20.0-27.5); Chloride 102 mmol/L (96-109); Chol/HDL Ratio 3.05 Ratio; Globulin 3.2 g/dL (1.6-3.3); Glucose 107 mg/dL (70-110); LDL Cholesterol,Calculated 91.9 mg/dL (0.0-131.0); Non-African American GFR(CKD) 52.3 (60.0-200.0); Potassium 4.7 mmol/L (3.5-5.5); Sodium 140 mmol/L (135-145); Total Protein 7.4 g/dL (6.2-8.2)
== END | disposition home or self-care (01) ==
LOC: LABWHC1 08:04
PROVIDERS: ATTEND Internal Medicine Critical Care Medicine
DX: E55.9 Vitamin D deficiency, unspecified (principal); N39.0 Urinary tract infection, site not specified; J30.9 Allergic rhinitis, unspecified; I26.99 Other pulmonary embolism without acute cor pulmonale; D68.51 Activated protein C resistance
CPT/HCPCS: 36415; 80053; 80061; 82248; 82306; 83036; 84439; 84443; 85025

== ENCOUNTER → 2023-10-04 | Outpatient (CLI) | payer MEDICARE ==
--- NOTE | 2023-10-05 23:58 | BD ---
EXAMINATION TYPE: Axial Bone Density DATE OF EXAM: 10/04/2023 CLINICAL HISTORY: 73 years old Female. ICD-10 CODE: Z78.0 ASYMP MENOPAUSAL Height: 5 ft 4 in Weight: 219 FRAX RISK QUESTIONS: Alcohol (3 or more units per day): no Family History (Parent hip fracture): no Glucocorticoids (More than 3mos): no (Ex: prednisone, prednisolone, methylprednisolone, dexamethasone, and hydrocortisone). History of Fracture in Adulthood: yes Secondary Osteoporosis: 1. Type 1 Diabetes: no 2. Hyperthyroidism: no 3. Menopause before 45: no 4. Malnutrition: no 5. Chronic liver disease: no Rheumatoid Arthritis: no Current Tobacco Use: no RISK FACTORS HISTORY OF: Surgery to Spine/Hip(right/left)/Wrist (right/left): no Family History of Osteoporosis: no Active: yes Diet low in dairy products/other sources of calcium: no Postmenopausal woman: yes Take estrogen and/or progesterone medications: no Lost more than 2 inches in height since high school: no Frequent falls: no Poor Health: good Hyperparathyroidism: no Adrenal Insufficiency: no MEDICATIONS: Additional Medications: blood pressure meds, blood thinner Additional History: EXAM MEASUREMENTS: Bone mineral densitometry was performed using the [employer]. Bone mineral density as measured about the Lumbar spine is: ----- L1-L4(G/cm2): 1.246 T Score Values are as follows: ----- L1: 0.1 ----- L2: 0.1 ----- L3: 0.2 ----- L4: 1.5 ----- L1-L4: 0.6 Z Score Values are as follows: ----- L1: 0.7 ----- L2: 0.7 ----- L3: 0.8 ----- L4: 2.1 ----- L1-L4: 1.2 Bone mineral density has: increased 1.5 % since study of: 2018 Bone mineral density about the R hip (g/cm2): 0.884 Bone mineral density about the L hip (g/cm2): 0.922 T Score values are as follows: -----R Neck: -1.1 -----L Neck: -0.8 -----R Total: -0.2 -----L Total: 0.1 Z Score values are as follows: -----R Neck: 0.1 -----L Neck: 0.3 -----R Total: 0.7 -----L Total: 1.0 Bone mineral density has: decreased -1.6 % since study of: 2018 FRAX%s: The graph provided illustrates a 13.9 % chance for a major osteoporotic fx and a 2.0 % chance for the hips probability for fx in 10 years time. IMPRESSION: Normal (Values between +1 and -1 indicate normal bone mass). Consider repeating this study in 5 year s or sooner if there is some new clinical indication. NOTE: T-SCORE=SD OF THE YOUNG ADULT MEAN.
--- NOTE | 2023-10-06 13:51 | MM ---
Reason for Exam: Screening (asymptomatic). Last mammogram was performed 1 year(s) and 1 month(s) ago. Patient History: Menarche at age 11. First Full-Term at age 14. Postmenopausal. Patient has history of breast feeding. Estrogen for 5 years until age 49. Progesterone for 5 years until age 49. Patient used Hormonal Contraceptives for 2 years. Paternal grandmother had breast cancer. Sister had breast cancer, age 61. Risk Values: Elma 5 year model risk: 3.3%. NCI Lifetime model risk: 7.0%. Prior Study Comparison: 08/13/2020 Bilateral Screening Mammogram, [facility]. 09/23/2021 Bilateral Screening Mammogram, [facility]. 09/26/2022 Bilateral MG 3D screening mammo w/cad, [facility]. Tissue Density: There are scattered fibroglandular densities. Findings: Pattern appears symmetrical and stable. No significant interval changes are evident. No suspicious groups of microcalcifications, spiculated or lobular masses, architectural distortion or other secondary signs of malignancy are mammographically apparent. Overall Assessment: Benign, BI-RAD 2 Management: Screening Mammogram of both breasts in 1 year. A negative mammogram report should not preclude additional follow up of suspicious palpable abnormalities. Patient should continue monthly self breast exam. A clinical breast exam by your physician is recommended on an annual basis and results should be correlated with mammographic findings. Electronically signed and approved by: Fabricio Lucero D.O. Radiologis
== END | disposition home or self-care (01) ==
LOC: RADBDWWP 08:14
PROVIDERS: ATTEND Obstetrics & Gynecology
DX: Z12.31 Encounter for screening mammogram for malignant neoplasm of breast (principal); M85.851 Other specified disorders of bone density and structure, right thigh; Z78.0 Asymptomatic menopausal state; Z80.3 Family history of malignant neoplasm of breast
CPT/HCPCS: 77063; 77067; 77080

== ENCOUNTER → 2024-01-23 | Outpatient (CLI) | payer MEDICARE ==
[2024-01-23 11:40] LABS: Basophils # (A) 0.07 X 10*3/uL (0.00-0.10); Basophils % (A) 0.7 %; Eosinophils # (A) 0.17 X 10*3/uL (0.04-0.35); Eosinophils % (A) 1.8 %; HCT 45.5 % (37.2-46.3); HGB 14.5 g/dL (12.0-15.0); Lymphocytes # (A) 4.23 X 10*3/uL (0.90-5.00); Lymphocytes % (A) 44.8 %; MCH 26.9 pg (27.0-32.0); MCHC 31.9 g/dL (32.0-37.0); MCV 84.4 FL (80.0-97.0); Mean Platelet Volume 11.7 FL (9.5-12.2); Monocytes # (A) 0.84 X 10*3/uL (0.20-1.00); Monocytes % (A) 8.9 %; NRBC Per 100 WBC 0 X 10*3/uL (0.00-0.01); Neutrophils # (A) 4.09 X 10*3/uL (1.80-7.70); Neutrophils % (A) 43.4 %; Platelet Count 283 X 10*3/uL (140-440); RBC 5.39 X 10*6/uL (4.10-5.20); RDW 13.4 % (11.5-14.5); WBC 9.44 X 10*3/uL (4.50-10.00)
[2024-01-23 16:34] LABS: ALT 25 U/L (8-44); AST 23 U/L (13-35); Albumin 4.4 g/dL (3.8-4.9); Albumin/Globulin Ratio 1.42 Ratio (1.60-3.17); Alkaline Phosphatase 86 U/L (41-126); BUN/Creat Ratio 23.36 Ratio (12.00-20.00); Blood Urea Nitrogen 25.7 mg/dL (9.0-27.0); Calcium 10.2 mg/dL (8.7-10.3); Carbon Dioxide 25.8 mmol/L (21.6-31.8); Chloride 102 mmol/L (96-109); Chol/HDL Ratio 3.54 Ratio; Globulin 3.1 g/dL (1.6-3.3); Glucose 103 mg/dL (70-110); LDL Cholesterol,Calculated 111.8 mg/dL (0.0-131.0); Potassium 4.4 mmol/L (3.5-5.5); Sodium 139 mmol/L (135-145); Total Bilirubin 0.5 mg/dL (0.3-1.2); Total Protein 7.5 g/dL (6.2-8.2)
[2024-01-23 16:55] LABS: T4, Free (Free Thyroxine) 1.15 ng/dL (0.80-1.80)
== END | disposition home or self-care (01) ==
LOC: LABWHC1 08:10
PROVIDERS: ATTEND Internal Medicine Critical Care Medicine
DX: Z00.00 Encounter for general adult medical examination without abnormal findings (principal); I26.99 Other pulmonary embolism without acute cor pulmonale; N39.0 Urinary tract infection, site not specified; E55.9 Vitamin D deficiency, unspecified
CPT/HCPCS: 36415; 80053; 80061; 82306; 83036; 84439; 84443; 85025

== ENCOUNTER → 2024-11-27 | Outpatient (CLI) | payer MEDICARE ==
--- NOTE | 2024-11-27 11:02 | MM ---
Reason for Exam: Screening (asymptomatic). Last mammogram was performed 1 year(s) and 1 month(s) ago. Patient History: Menarche at age 11. First Full-Term at age 14. Postmenopausal. Patient has history of breast feeding. Estrogen for 5 years until age 49. Progesterone for 5 years until age 49. Patient used Hormonal Contraceptives for 2 years. Paternal grandmother had breast cancer. Sister had breast cancer, age 61. Risk Values: Elma 5 year model risk: 3.3%. NCI Lifetime model risk: 6.6%. Prior Study Comparison: 09/23/2021 Bilateral Screening Mammogram, [facility]. 09/26/2022 Bilateral MG 3D screening mammo w/cad, [facility]. 10/04/2023 Bilateral MG 3D screening mammo w/cad, [facility]. Tissue Density: There are scattered areas of fibroglandular density. Findings: Analyzed By CAD. Right breast: There is no suspicious group of microcalcifications or new suspicious mass. Left breast: There is no suspicious group of microcalcifications or new suspicious mass. Overall Assessment: Negative, BI-RAD 1 Management: Screening Mammogram of both breasts in [address] [facility] will attempt to contact patient to return for supplemental views and ultrasound if indicated. Patient should continue monthly self-breast exams. A clinical breast exam by your physician is recommended on an annual basis. This exam should not preclude additional follow-up of suspicious palpable abnormalities. Note on Elma scores and lifetime risk: 1. A Elma score greater than 3% is considered moderate risk. If this is the case, consider specialist referral to assess eligibility for a risk reducing agent. 2. If overall lifetime risk for the development of breast cancer is 20% or higher, the patient may qualify for future screening with alternating mammogram and breast MRI. [facility], , 11/27/2024 10:58 AM. Electronically signed and approved by: Riki Bruno DO
== END | disposition home or self-care (01) ==
LOC: RADMAMWWP 10:26
PROVIDERS: ATTEND Family Medicine
DX: Z12.31 Encounter for screening mammogram for malignant neoplasm of breast (principal); R92.323 Mammographic fibroglandular density, bilateral breasts; Z78.0 Asymptomatic menopausal state; Z80.3 Family history of malignant neoplasm of breast; Z92.0 Personal history of contraception
CPT/HCPCS: 77063; 77067